=== PATIENT | female | born 1980 | race Caucasian/White ===

== ENCOUNTER 2018-08-07 19:38 | Emergency (ER) | payer OTHER, SELFPAY ==
[2018-08-07 19:40] VITALS: BP 124/95; PULSE 74; RESP 20; TEMP 36.7; O2SAT 97
--- NOTE | 2018-08-07 20:36 | ED.GENADUL_ITS ---
Discharge Plan Disposition Patient Disposition: HOME Condition: Stable Discharge Details Chief Complaint: Nk/Back Pain Clinical Impression: Lumbar back pain, Sciatica Primary Care Provider: Gregorio Pappas ED Provider: Kristyn Byrd Home Meds and New Rx's Prescriptions: New ibuprofen 600 mg tablet 600 mg PO QID PRN (Reason: pain) Qty: 20 RF: 0 methylprednisolone [Medrol (Jj)] 4 mg tablets,dose pack 4 mg PO DIRECTED Qty: 21 RF: 0 diazepam [Valium] 5 mg tablet 5 mg PO TID PRN (Reason: muscle spasm) Qty: 7 RF: 0 Continue multivitamin [One-A-Day Essential] 1 EACH tablet 1 cap PO DAILY RF: 0 conjugated estrogens [Premarin] 1.25 MG tablet 1.25 mg PO DAILY RF: 0 Discharge Instructions Instructions: Sciatica (ED), Low Back Strain (ED) Additional Instructions: Alternate ice and heat several times daily for 20 minutes at a time. Take the Valium as needed and directed for pain not relieved with ibuprofen. If you have no relief of pain in the next 2 days, start the steroid dosepak. Follow up with your primary care doctor in 1 week for reevaluation. Return to the emergency department any worsening or new concerning symptoms. Discharge Data Discharge Physician: Kristyn Byrd Medical Decision Making 37-year-old female presents with right lower back with radiation to right hip, right buttock and right anterior thigh since this afternoon. Denies known injury. Pain extends into anterior thigh but not past this. No cauda equina symptoms. No urinary symptoms. No fever, vomiting or abdominal pain. Patient has history of hysterectomy. Vitals within normal limits. Afebrile. No signs of trauma, infection or rash noted to back or leg. She has tenderness palpation to local palpation of right lumbar paraspinal region, right buttock. Positive straight leg raise on the right. Hypoactive reflex noted to right patella. Otherwise she is neurovascularly intact with normal strength in her bilateral lower extremities. She has history of sac and states her symptoms feel similar. Presentation appears similar to sciatica versus muscle spasm at this time. Patient took ibuprofen and minutes prior to arrival. 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 Will send home with dose of Valium for home tonight before sleep. Patient was also given a prescription for Valium to take over the next few days when she is home and not driving. She was also sent home with a prescription for Medrol Dosepak to take if she has no relief with Motrin and Valium, ice and heat as she does not want to feel sleepy and needs to drive. She is instructed to try the other medication to see if she has relief before starting the steroids. She is instructed to follow-up with a primary care doctor in 1 week for reevaluation and for possible MRI if symptoms persist or worsen. She is instructed to return here immediately if worse. HPI General Mode of arrival: ambulatory . Date/Time Provider Initiated Documentation: 08/07/18 19:44 . Limitations to Documentation: no limitations . Information obtained by: patient . HPI Narrative: Patient is a 37-year-old female who presents with right-sided lower back pain with extension into right hip, right buttock and right thigh since this afternoon. States she laid down for a nap and then awoke with the pain. Patient states the pain feels like a burning and aching and is currently 8/10. States the pain is worse with walking, moving or standing and better when laying on her right side. She took ibuprofen 90 minutes ago without relief. She has not used ice or heat. She admits to history of sciatica in the past and states this feels somewhat similar. She denies fever, nausea, vomiting, abdominal pain, dysuria, hematuria, urinary frequency, urinary urgency , urinary or fecal incontinence, saddle anesthesia, leg weakness or numbness. She denies any known injury. 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 Past medical history: Endometriosis, HPV Surgical history: Hysterectomy 2008, laparoscopy Social history: Former tobacco user, rare alcohol, denies drugs Medications: Multivitamin, Premarin Allergies: None PCP: Dr. Moreno in [place] Related Data Home Medications Medication Instructions Recorded Confirmed conjugated estrogens [Premarin] 1.25 mg PO DAILY 12/21/14 08/07/18 multivitamin [One-A-Day Essential] 1 cap PO DAILY 12/21/14 08/07/18 diazepam [Valium] 5 mg PO TID PRN #7 tab 08/07/18 ibuprofen 600 mg PO QID PRN #20 tab 08/07/18 methylprednisolone [Medrol (Jj)] 4 mg PO DIRECTED #21 dose pk 08/07/18 Previous Rx's Medication Instructions Recorded diazepam [Valium] 5 mg PO TID PRN #7 tab 08/07/18 ibuprofen 600 mg PO QID PRN #20 tab 08/07/18 methylprednisolone [Medrol (Jj)] 4 mg PO DIRECTED #21 dose pk 08/07/18 Allergies Allergy/AdvReac Type Severity Reaction Status Date / Time No Known Allergies Allergy Unverified 08/07/18 19:43 General Stated Complaint: Nk/Back Pain IRON: 3 Review of Systems Review of Systems All systems reviewed & are unremarkable except as noted in HPI and below Constitutional Reports as per HPI, Denies chills and Denies fever(s) Eyes Denies blurry vision ENT Denies dizziness, Denies sore throat and Denies throat swelling Cardiovascular Denies chest pain and Denies dyspnea Respiratory Denies dyspnea Gastrointestinal Denies abdominal pain, Denies diarrhea and Denies vomiting Genitourinary Denies hematuria and Denies dysuria Musculoskeletal Reports back pain and Denies numbness Integumentary/Breasts Denies lesions and Denies rash Neurologic Denies dizziness and Denies numbness Allergic/Immunologic Denies throat swelling PFSH Social History Smoking/Tobacco Use Status: Former Tobacco Use Exam Const General: cooperative, healthy appearing and no acute distress HENMT Head: normal to inspection Mouth: oral mucosae normal Eyes General: appearance normal, both eyes and all related structures Neck Neck: normal visual inspection Resp Effort & Inspection: normal respiratory effort and able to speak in complete sentences Auscultation: clear to auscultation bilaterally Cardio Rate: regular rate Rhythm: regular rhythm GI Inspection: normal to inspection Palpation: soft, not firm, no guarding, not rigid and nontender Back/Spine/Pelvis Back: no CVA tenderness Thoracic/Lumbar Spine: No straight leg raise negative bilaterally (positive on right), paraspinal tenderness (R lumbar region) and No lumbar spinal tenderness Sacroiliac joints: on the right tender to palpation Other: Tenderness to palpation R upper buttock. No evidence of ecchymosis, erythema, rash, lesions, induration or fluctuance noted to lumbar region or right buttock. Skin General skin exam: no rashes or lesions noted Neuro General: alert, awake and oriented x3 Motor: muscle tone normal throughout and strength 5/5 throughout DTR's: Rt Patellar: 1+, Lt Patellar: 2+, Rt Ankle: 2+ and Lt Ankle: 2+ Plantar Reflexes: Equivocal: bilateral (Negative babinski b/l ) Extrem General: normal to inspection and full ROM Other: Bilateral DP/PT pulses intact. Psych Appearance: grossly normal Affect: normal affect Course Vital Signs Temperature 98.1 F 08/07/18 19:40 Pulse 74 08/07/18 19:40 Respiratory Rate 20 08/07/18 19:40 Blood Pressure 124/95 H 08/07/18 19:40 Pulse Oximetry 97 08/07/18 19:40 Temperature 98.1 F 08/07/18 19:40 Temperature Source Temporal Artery Scan 08/07/18 19:40 Pulse 74 08/07/18 19:40 Respiratory Rate 20 08/07/18 19:40 Respiratory Effort Non-Labored 08/07/18 19:40 Blood Pressure 124/95 H 08/07/18 19:40 Pulse Oximetry 97 08/07/18 19:40 Oxygen Delivery Method Room Air 08/07/18 19:40 Oxygen Flow Rate 0 08/07/18 19:40 Pain Level 8 08/07/18 19:44
[2018-08-07] MEDS: Diazepam 5 MG TAB PO (20:40)
[2018-08-07 20:51] VITALS: BP 124/95; PULSE 74; RESP 20; TEMP 36.7; O2SAT 97
== END 2018-08-07 20:45 | disposition home or self-care (01) ==
LOC: ER 20:53
PROVIDERS: Emergency Provider Physician Assistant; PCP Family Medicine
DX: M54.41 Lumbago with sciatica, right side (principal)
CPT/HCPCS: 99283

== ENCOUNTER 2019-08-31 11:41 | Emergency (ER) | payer OTHER, SELFPAY ==
[2019-08-31 11:42] VITALS: BP 122/81; PULSE 85; RESP 14; TEMP 36.6; O2SAT 97
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
--- NOTE | 2019-08-31 12:04 | DI.RAD_ITS ---
EXAM: XR FINGER RT RING INDICATION: trauma, pain at right 4 digit at PIP joint. COMPARISON: RIGHT HAND COMPLETE from 04/19/2015 TECHNIQUE: 2D digital imaging was performed. FINDINGS: No fracture or dislocation is seen. There are no bony erosions or evidence of foreignbody. IMPRESSION: Negative right ring finger.
[2019-08-31] MEDS: Acetaminophen 325 MG TAB 650 MG PO (12:09)
== END 2019-08-31 13:13 | disposition home or self-care (01) ==
PROVIDERS: Emergency Provider Student in an Organized Health Care Education/Training Program; PCP Family Medicine
DX: M79.644 Pain in right finger(s) (principal)
CPT/HCPCS: 99283; 73140; 99282

== ENCOUNTER 2020-11-03 18:54 | Emergency (ER) | payer OTHER, SELFPAY ==
[2020-11-03 18:58] VITALS: BP 158/98; PULSE 104; RESP 20; TEMP 36.5; O2SAT 97
--- NOTE | 2020-11-03 19:03 | ED.GENADUL_ITS ---
Discharge Plan Disposition Patient Disposition: HOME Condition: Stable Discharge Details Clinical Impression: Urinary tract infection Primary Care Provider: Gregorio Pappas ED Provider: Myrtle Roberts Home Meds and New Rx's Prescriptions: New phenazopyridine [Pyridium] 100 mg tablet 100 mg PO TID PRN (Reason: pain) Qty: 7 RF: 0 cephalexin 500 mg capsule 500 mg PO BID 7 Days Qty: 14 RF: 0 No Action multivitamin [One-A-Day Essential] 1 EACH tablet 1 cap PO DAILY RF: 0 Premarin 1.25 MG tablet 1.25 mg PO DAILY RF: 0 Discharge Instructions Instructions: Urinary Tract Infection in Women (ED) Additional Instructions: Follow up with primary care provider in 3-5 days. Return to ED sooner if any worsening pain, fever, vomiting, or concerns. Increase oral fluids. Please take Tylenol or Ibuprofen with food every 4-6 hours as needed for pain and swelling. Take medications as directed. Continue taking antibiotic even when feeling better. The Pyridium will numb the urinary tract and turn your urine bright orange. Referrals: Gregorio Pappas [Primary Care Provider] - Medical Decision Making 40-year-old female presents to the ER with chief complaint of dysuria, urinary hesitancy, urinary frequency and hematuria. This began approximately 2 hours prior to arrival. No vomiting no flank pain no other complaints. Urinalysis shows large blood, moderate leukocytes, negative nitrite micro shows greater than 50 WBCs culture is pending at this time. Patient was given Pyridium in department and cephalexin 500 mg p.o. prior to discharge. Prescription given for cephalexin 500 mg twice a day x10 days. Discussed return instructions, verbalized understanding. HPI General Mode of arrival: ambulatory . Date/Time Provider Initiated Documentation: 11/03/20 18:54 . Limitations to Documentation: no limitations . Information obtained by: patient . HPI Narrative: 40-year-old female presents to the ER chief complaint of dysuria and hematuria which began approximately 2 hours prior to arrival. She describes hesitancy and bladder fullness. Denies any back pain, abdominal pain, fever chills or diarrhea. She has a past surgical history of hysterectomy past medical history of endometriosis and HPV. Related Data Home Medications Medication Instructions Recorded Confirmed Premarin 1.25 mg PO DAILY 12/21/14 11/03/20 multivitamin [One-A-Day Essential] 1 cap PO DAILY 12/21/14 11/03/20 cephalexin 500 mg PO BID 7 Days #14 cap 11/03/20 phenazopyridine [Pyridium] 100 mg PO TID PRN #7 tab 11/03/20 Previous Rx's Medication Instructions Recorded cephalexin 500 mg PO BID 7 Days #14 cap 11/03/20 phenazopyridine [Pyridium] 100 mg PO TID PRN #7 tab 11/03/20 Allergies Allergy/AdvReac Type Severity Reaction Status Date / Time No Known Allergies Allergy Unverified 11/03/20 19:02 General Stated Complaint: Urinary IRON: 3 Review of Systems All systems reviewed & are unremarkable except as noted in HPI and below Genitourinary Genitourinary: Reports as per HPI, Reports hematuria, Reports dysuria and Reports urinary hesitancy [facility] Social History Smoking/Tobacco Use Status: Former Tobacco Use Smoking risk assessment performed?: Yes Alcohol Intake: never Drug use: Never Substance use type: does not use Current gender identity: female Do you feel safe at home: Yes Do you feel safe in your relationship?: Yes Exam Narrative Exam Narrative: Constitutional: Alert and oriented x3. Appears stated age. Normal body habitus. Head: Normocephalic, no trauma. Chest: RRR, Normal S1, S2, distal pulses intact. Resp: Lungs clear to auscultation bilaterally, no wheezes, rales, or rhonchi. Abdomen: Soft, nontender to palpation, nondistended Musculoskeletal: Normal gait, 5/5 strength to all four extremities. Skin: No suspicious rashes or lesions. Capillary refill less than 2 sec. Neurologic: Cranial nerves II-XII intact. Alert and oriented x 3. DTR's intact. Hematologic/Lymphatic: No ecchymosis, no lymphadenopathy. Course Vital Signs Vital signs: Vital Signs Temperature 36.5 C 11/03/20 18:58 Pulse 104 H 11/03/20 18:58 Respiratory Rate 20 11/03/20 18:58 Blood Pressure 158/98 H 11/03/20 18:58 Pulse Oximetry 97 11/03/20 18:58 Temperature 36.5 C 11/03/20 18:58 Temperature Source Skin 11/03/20 18:58 Pulse 104 H 11/03/20 18:58 Respiratory Rate 20 11/03/20 18:58 Respiratory Effort Non-Labored 11/03/20 19:02 Blood Pressure 158/98 H 11/03/20 18:58 Blood Pressure Position Sitting 11/03/20 18:58 Pulse Oximetry 97 11/03/20 18:58 Oxygen Delivery Method Room Air 11/03/20 18:58 Oxygen Flow Rate 0 11/03/20 18:58 Pain Level 9 11/03/20 18:58
[2020-11-03 19:22] LABS: Bilirubin Negative (Negative); Blood Large (Negative); Clarity Sl Cloudy (Clear); Glucose Negative (Negative); Ketones Negative (Negative); Leukocyte Esterase Moderate (Negative); Nitrite Negative (Negative); Urobilinogen 0.2 EU/dL (Up TO 0.2)
[2020-11-03 19:32] LABS: WBC >50 HPF (0-5)
[2020-11-03 19:33] LABS: Bacteria Moderate HPF (Negative); C & S Indicated? Yes; Casts Negative LPF (Negative); Crystals Negative HPF (Negative); Epithelial Cells Few HPF (Negative); Mucus Negative (Negative); Other Cells Negative (Negative); RBC Negative HPF (0-2)
[2020-11-03] MEDS: Cephalexin 500 MG CAP PO (19:39)
[2020-11-03] MEDS: Phenazopyridine 100 MG TAB PO (19:39)
[2020-11-03] MEDS: Cephalexin 500 MG CAP, 4 CAPS/BTL PO (19:39)
[2020-11-03] MEDS: Phenazopyridine 100 MG TAB, 2 TABS/BTL PO (19:40)
== END 2020-11-03 19:42 | disposition home or self-care (01) ==
PROVIDERS: Emergency Provider Registered Nurse Emergency; PCP Family Medicine
DX: N39.0 Urinary tract infection, site not specified (principal); B96.20 Unspecified Escherichia coli [E. coli] as the cause of diseases classified elsewhere
CPT/HCPCS: 81025; 87077; 99283; 81003; 81015; 87086; 87186

== ENCOUNTER 2021-08-05 11:01 | Emergency (ER) | payer OTHER, SELFPAY ==
[2021-08-05 11:06] VITALS: BP 135/84; PULSE 88; RESP 14; TEMP 36.8; O2SAT 98
--- NOTE | 2021-08-05 11:27 | W.ED.GENAD ---
Discharge Plan Disposition Patient Disposition: HOME Condition: Stable Discharge Details Clinical Impression: UTI (urinary tract infection) Primary Care Provider: Gregorio Pappas ED Provider: Shira Jiang Home Meds and New Rx's Prescriptions: New cephalexin 500 mg tablet 500 mg PO BID 7 Days Qty: 14 RF: 0 phenazopyridine [Pyridium] 100 mg tablet 100 mg PO TID PRN (Reason: pain) Qty: 6 RF: 0 Continued multivitamin [One-A-Day Essential] 1 EACH tablet 1 cap PO DAILY RF: 0 Premarin 1.25 MG tablet 1.25 mg PO DAILY RF: 0 phenazopyridine [Pyridium] 100 mg tablet 100 mg PO TID PRN (Reason: pain) Qty: 7 RF: 0 Discharge Instructions Instructions: Urinary Tract Infection in Women (ED) Additional Instructions: Please continue to encourage hydration. Please take antibiotics for urinary tract infection as prescribed. Even if symptoms improve, please take the entire course. You may use the Pyridium as prescribed to help with the discomfort. You may use Tylenol and ibuprofen as needed for discomfort as well. If you develop fever/chills back pain or other new/worsening symptoms please seek care urgently once again. Otherwise complete follow-up with primary care in 1 week for reevaluation. Referrals: Gregorio Pappas [Primary Care Provider] - Medical Decision Making Patient is a pleasant 40-year-old female presenting today with chief complaint of dysuria, increased frequency and urgency. She states that she had similar episodes historically and seen here in October for same. At that time, she did have a UTI which was pansensitive states that starting yesterday, she began having increased frequency urgency dysuria once again. No hematuria. Denies any flank pain. Denies any fevers or chills. No nausea or vomiting. Denies any vaginal discharge. Patient is status post hysterectomy. On exam, patient appears nontoxic. No CVA tenderness. No significant abdominal discomfort. Patient is nontoxic-appearing with stable vital signs. We will obtain urinalysis. Primarily concern for UTI. No evidence to suggest septicemia or pyelonephritis this time. Patient was treated Pyridium and cephalexin when she was here in October with good results. We will do the same once again. Encourage hydration. We discussed ways to prevent UTIs in the future. Return precautions were discussed. All of her questions and concerns were addressed and she is in agreement this plan. HPI General Mode of arrival: ambulatory. Date/Time Provider Initiated Documentation: 08/05/21 11:27. Limitations to Documentation: no limitations. Information obtained by: patient, RN notes reviewed and old records reviewed. History of Present Illness 40 year old F presents to the emergency department with the chief complaint of Dysuria, increased frequency and urgency, described as moderate and similar to prior episodes, with intensity rated at 7. Quality is described as burning, and is localized to the genitals (At urethra with urination). Patient reports no radiation. Patient started experiencing this day(s) and it has been constant. Medication improves symptom(s), (Has used 1 dose of Azo today with good relief) No exacerbating factors reported . Patient notes no other symptoms.. Patient did receive the following treatments prior to arrival, other (Azo) Related Data Home Medications Medication Instructions Recorded Confirmed Premarin 1.25 mg PO DAILY 12/21/14 08/05/21 multivitamin [One-A-Day Essential] 1 cap PO DAILY 12/21/14 08/05/21 phenazopyridine [Pyridium] 100 mg PO TID PRN #7 tab 11/03/20 08/05/21 cephalexin 500 mg PO BID 7 Days #14 tab 08/05/21 phenazopyridine [Pyridium] 100 mg PO TID PRN #6 tab 08/05/21 Previous Rx's Medication Instructions Recorded phenazopyridine [Pyridium] 100 mg PO TID PRN #7 tab 11/03/20 cephalexin 500 mg PO BID 7 Days #14 tab 08/05/21 phenazopyridine [Pyridium] 100 mg PO TID PRN #6 tab 08/05/21 Allergies Allergy/AdvReac Type Severity Reaction Status Date / Time No Known Allergies Allergy Unverified 11/28/20 11:40 General Stated Complaint: Urinary IRON: 3 Review of Systems Constitutional Constitutional: Reports as per HPI, Denies chills and Denies fever(s) Gastrointestinal Gastrointestinal: Denies abdominal pain, Denies change in bowel habits, Denies nausea and Denies vomiting Genitourinary Genitourinary: Reports as per HPI Musculoskeletal Musculoskeletal: Reports as per HPI and Denies back pain Integumentary/Breasts Skin/Breast: Reports as per HPI and Denies rash [facility] Social History Smoking/Tobacco Use Status: Former Tobacco Use Smoking risk assessment performed?: Yes Alcohol Intake: never Drug use: Never Substance use type: does not use Current gender identity: female Do you feel safe at home: Yes Do you feel safe in your relationship?: Yes Exam Const General: cooperative, healthy appearing, comfortable, no acute distress, well developed and well groomed Nutritional Appearance: average body habitus and well nourished Orientation: alert and awake Resp Effort & Inspection: normal respiratory effort and no respiratory distress Auscultation: no rales GI Inspection: normal to inspection Palpation: soft, no hepatosplenomegaly, not firm, no guarding, not rigid and nontender Back/Spine/Pelvis Back: no CVA tenderness Skin General skin exam: no rashes or lesions noted Trauma: no lacerations or abrasions Neuro General: patient alert and patient awake Cognition: normal cognition Speech: speech normal Gait: normal gait Psych Appearance: grossly normal and well kempt Mental Status: mental status grossly normal Speech and Movement: speech and movement normal Course Vital Signs Vital signs: Vital Signs Temperature 36.8 C 08/05/21 11:06 Pulse 88 08/05/21 11:06 Respiratory Rate 14 08/05/21 11:06 Blood Pressure 135/84 08/05/21 11:06 Pulse Oximetry 98 08/05/21 11:06 Temperature 36.8 C 08/05/21 11:06 Temperature Source Tympanic 08/05/21 11:06 Pulse 88 08/05/21 11:06 Respiratory Rate 14 08/05/21 11:06 Respiratory Effort Non-Labored 08/05/21 11:09 Blood Pressure 135/84 08/05/21 11:06 Blood Pressure Position Sitting 08/05/21 11:06 Pulse Oximetry 98 08/05/21 11:06 Pain Level 6 08/05/21 11:18
[2021-08-05 11:29] LABS: Bilirubin Negative (Negative); Blood Negative (Negative); Clarity Clear (Clear); Glucose Negative (Negative); Ketones Negative (Negative); Leukocyte Esterase Small (Negative); Nitrite Positive (Negative); Urobilinogen 0.2 EU/dL (Up TO 0.2)
[2021-08-05 11:37] LABS: Bacteria Few HPF (Negative); C & S Indicated? Yes; Casts Negative LPF (Negative); Crystals Negative HPF (Negative); Epithelial Cells Few HPF (Negative); Mucus Negative (Negative); RBC Negative HPF (0-2)
[2021-08-05 11:48] VITALS: BP 128/80; PULSE 80; RESP 16; TEMP 36.8; O2SAT 98
== END 2021-08-05 11:44 | disposition home or self-care (01) ==
PROVIDERS: Emergency Provider Physician Assistant; PCP Family Medicine
DX: N39.0 Urinary tract infection, site not specified (principal); B96.89 Other specified bacterial agents as the cause of diseases classified elsewhere
CPT/HCPCS: 99283; 81003; 81015; 87086

== ENCOUNTER 2021-08-22 09:55 | Outpatient (REF) | payer OTHER, SELFPAY ==
[2021-08-22 15:20] LABS: Bilirubin Negative (Negative); Blood Trace (Negative); Clarity Clear (Clear); Glucose Negative (Negative); Ketones Negative (Negative); Leukocyte Esterase Small (Negative); Nitrite Negative (Negative); Urobilinogen 0.2 EU/dL (Up TO 0.2); pH 6.5 (5-8)
[2021-08-22 15:30] LABS: Bacteria Rare HPF (Negative); C & S Indicated? No/Sq. Contamination; Casts Negative LPF (Negative); Crystals Negative HPF (Negative); Epithelial Cells Moderate HPF (Negative); Mucus Negative (Negative); Other Cells Few Transitional (Negative); RBC 0-2 HPF (0-2)
== END 2021-08-22 09:56 | disposition home or self-care (01) ==
LOC: LBN 09:55
PROVIDERS: PCP Family Medicine; Visit Provider Obstetrics & Gynecology Gynecology
DX: R30.0 Dysuria (principal); Z12.4 Encounter for screening for malignant neoplasm of cervix; Z53.9 Procedure and treatment not carried out, unspecified reason
CPT/HCPCS: 88142; 81003; 81015; 87624

== ENCOUNTER 2021-08-22 12:45 | Emergency (ER) | payer OTHER, SELFPAY ==
[2021-08-22 12:49] VITALS: BP 140/78; PULSE 81; RESP 16; TEMP 36.3; O2SAT 97
[2021-08-22 13:06] LABS: Bilirubin Negative (Negative); Clarity Clear (Clear); Glucose Negative (Negative); Ketones Negative (Negative); Leukocyte Esterase Small (Negative); Nitrite Positive (Negative); Urobilinogen 0.2 EU/dL (Up TO 0.2)
[2021-08-22 13:07] LABS: Blood Trace-intact (Negative)
[2021-08-22 13:12] LABS: Bacteria Few HPF (Negative); C & S Indicated? No/Sq. Contamination; Casts Negative LPF (Negative); Crystals Negative HPF (Negative); Epithelial Cells Many HPF (Negative); Mucus Negative (Negative)
--- NOTE | 2021-08-22 13:19 | ED.GENADUL_ITS ---
Discharge Plan Disposition Patient Disposition: HOME Condition: Stable Discharge Details Clinical Impression: UTI (urinary tract infection) Primary Care Provider: Gregorio Pappas ED Provider: Bassam Andrade Home Meds and New Rx's Prescriptions: New sulfamethoxazole-trimethoprim [Bactrim DS] 800-160 mg tablet 1 tab PO BID Qty: 14 RF: 0 phenazopyridine [Pyridium] 200 mg tablet 200 mg PO TID PRNQty: 6 RF: 0 Continued multivitamin [One-A-Day Essential] 1 EACH tablet 1 cap PO DAILY RF: 0 Premarin 1.25 MG tablet 1.25 mg PO DAILY RF: 0 Discontinued phenazopyridine [Pyridium] 100 mg tablet 100 mg PO TID PRN (Reason: pain) Qty: 7 RF: 0 Discharge Instructions Instructions: Urinary Tract Infection in Women (ED) Additional Instructions: As we discussed your urine sample was contaminated, inconclusive for obvious infection. Based upon your symptoms, you would like to be treated which I believe is reasonable. Pyridium and Bactrim as directed. Please watch for new or worsening symptoms and return to the ER for any concerns. If symptoms are to persist I do recommend following up with your primary care provider for potential repeat urinalysis, pelvic exam, and/or referral to urology for more definitive answers of your ongoing symptoms. Medical Decision Making 40-year-old female presents concern for UTI over the past couple of days. Patient most recent antibiotics, reviewing her medical record reveals that she was placed on cephalexin. Patient denies any STD exposure. She denies any fever abdominal pain, nausea, vomiting, flank pain, back pain, vaginal discharge or bleeding. Clinically she appears well, nontoxic obtain urinalysis and reassess. POC negative. Urinalysis trace blood, positive nitrite, 5-10 red cells, 10-20 white cells, many epithelials. Few bacteria. Likely contamination. Discussed UA with patient. Patient feels as though this is exactly like her previous UTI, would like to be treated as such. She would prefer not to have another urinalysis for now. Clinically she appears well, nontoxic, abdominal discomfort, nausea, vomiting or fever, back pain, vaginal bleeding or discharge. Discussed we will treat for UTI now with a medication other than cephalexin and will provide Pyridium but if symptoms are to persist I strongly recommend that she follows up through her primary care provider to discuss her ongoing symptoms, potential urology referral, and potential pelvic examination for further evaluation of her ongoing symptoms. Standard discharge and return precautions provided This documentation was generated using [employer] dictation system, please disregard any oddities of phrase or misspellings. Medical Records Medical records reviewed: Yes I reviewed the patient's medical records. Lab Data Lab results reviewed: Yes I reviewed the patient's lab results. Labs: Laboratory Tests Range/Units 08/22/21 12:50 Urine Color (Yellow) Yellow Urine Clarity (Clear) Clear Urine pH (5-8) 6.0 Ur Specific [place] (1.005-1.025) 1.010 Urine Protein (Negative) mg/dL Negative Urine Ketones (Negative) mg/dL Negative Urine Blood (Negative) Trace-intact H Urine Nitrite (Negative) Positive H Urine Bilirubin (Negative) Negative Urine Urobilinogen (Up TO 0.2) EU/dL 0.2 Ur Leukocyte Esterase (Negative) Small Urine RBC (0-2) HPF 5-10 H Urine WBC (0-5) HPF 10-20 H Ur Epithelial Cells (Negative) HPF Many Urine Crystals (Negative) HPF Negative Urine Bacteria (Negative) HPF Few Urine Casts (Negative) LPF Negative Urine Mucus (Negative) Negative Ur Culture Indicated? No/Sq. Contamination Urine Glucose (Negative) mg/dL Negative HPI General Mode of arrival: ambulatory . Date/Time Provider Initiated Documentation: 08/22/21 13:01 . Limitations to Documentation: no limitations . Information obtained by: patient . HPI Narrative: This is a 40-year-old female, denies any significant past medical history, presenting to the ER for concern of a possible UTI. Patient reports dysuria and urinary frequency over the past couple of days. Similar symptoms 1 month ago, treated with antibiotics and Pyridium and symptoms improved. Denies any fevers abdominal pain, nausea, vomiting, back pain, vaginal bleeding or discharge. No STD exposure. Patient did take a single AZO that she had leftover from her previous UTI. Related Data Home Medications Medication Instructions Recorded Confirmed Premarin 1.25 mg PO DAILY 12/21/14 08/22/21 multivitamin [One-A-Day Essential] 1 cap PO DAILY 12/21/14 08/22/21 phenazopyridine [Pyridium] 200 mg PO TID PRN #6 tab 08/22/21 sulfamethoxazole-trimethoprim 1 tab PO BID #14 tab 08/22/21 [Bactrim DS] Previous Rx's Medication Instructions Recorded phenazopyridine [Pyridium] 200 mg PO TID PRN #6 tab 08/22/21 sulfamethoxazole-trimethoprim 1 tab PO BID #14 tab 08/22/21 [Bactrim DS] Allergies Allergy/AdvReac Type Severity Reaction Status Date / Time No Known Allergies Allergy Unverified 08/22/21 12:59 General Stated Complaint: Urinary IRON: 4 Review of Systems Constitutional Constitutional: Denies fever(s) Gastrointestinal Gastrointestinal: Denies abdominal pain, Denies nausea and Denies vomiting Genitourinary Genitourinary: Denies abnormal vaginal bleeding, Reports hematuria, Reports dysuria and Denies vaginal discharge Musculoskeletal Musculoskeletal: Denies back pain Integumentary/Breasts Skin/Breast: Denies rash [facility] Social History Smoking/Tobacco Use Status: Former Tobacco Use Smoking risk assessment performed?: Yes Alcohol Intake: never Drug use: Never Substance use type: does not use Current gender identity: female Do you feel safe at home: Yes Do you feel safe in your relationship?: Yes Exam Const General: cooperative, healthy appearing, comfortable and no acute distress Orientation: alert and awake HENMT Head: normal to inspection, normocephalic and atraumatic Eyes General: appearance normal, both eyes and all related structures Conjunctivae: conjunctivae normal Neck Neck: normal visual inspection, trachea midline and supple Resp Effort & Inspection: normal respiratory effort and able to speak in complete sentences Cardio Rate: regular rate Rhythm: regular rhythm GI Palpation: soft, not firm, no guarding and nontender Back/Spine/Pelvis Back: No back tenderness Skin General skin exam: no rashes or lesions noted Neuro General: patient alert, patient awake, moves all extremities and no focal motor deficits Speech: speech normal Gait: normal gait Sensory Exam: no sensory deficits noted Psych Appearance: grossly normal Mental Status: mental status grossly normal Course Vital Signs Vital signs: Vital Signs Temperature 36.3 C L 08/22/21 12:49 Pulse 81 08/22/21 12:49 Respiratory Rate 16 08/22/21 12:49 Pulse Oximetry 97 08/22/21 12:49 Temperature 36.3 C L 08/22/21 12:49 Temperature Source Skin 08/22/21 12:49 Pulse 81 08/22/21 12:49 Respiratory Rate 16 08/22/21 12:49 Respiratory Effort Non-Labored 08/22/21 12:49 Pulse Oximetry 97 08/22/21 12:49 Pain Level 5 08/22/21 13:01 Lab/Test Results Lab/Test Results: Laboratory Tests Range/Units 08/22/21 12:50 Urine Color (Yellow) Yellow Urine Clarity (Clear) Clear Urine pH (5-8) 6.0 Ur Specific [place] (1.005-1.025) 1.010 Urine Protein (Negative) mg/dL Negative Urine Ketones (Negative) mg/dL Negative Urine Blood (Negative) Trace-intact H Urine Nitrite (Negative) Positive H Urine Bilirubin (Negative) Negative Urine Urobilinogen (Up TO 0.2) EU/dL 0.2 Ur Leukocyte Esterase (Negative) Small Urine RBC (0-2) HPF 5-10 H Urine WBC (0-5) HPF 10-20 H Ur Epithelial Cells (Negative) HPF Many Urine Crystals (Negative) HPF Negative Urine Bacteria (Negative) HPF Few Urine Casts (Negative) LPF Negative Urine Mucus (Negative) Negative Ur Culture Indicated? No/Sq. Contamination Urine Glucose (Negative) mg/dL Negative
== END 2021-08-22 13:37 | disposition home or self-care (01) ==
PROVIDERS: Emergency Provider Physician Assistant; PCP Family Medicine
DX: N39.0 Urinary tract infection, site not specified (principal)
CPT/HCPCS: 81025; 99283; 81003; 81015

== ENCOUNTER 2021-10-22 22:09 | Emergency (ER) | payer OTHER, SELFPAY ==
[2021-10-22 22:16] VITALS: BP 125/83; PULSE 88; RESP 16; TEMP 36.6; O2SAT 96
--- NOTE | 2021-10-22 22:16 | ED.GENADUL_ITS ---
Discharge Plan Disposition Patient Disposition: HOME Condition: Stable Discharge Details Clinical Impression: UTI (urinary tract infection) Primary Care Provider: Gregorio Pappas ED Provider: Tammie Milton Home Meds and New Rx's Prescriptions: New cephalexin 500 mg capsule 500 mg PO BID Qty: 8 RF: 0 No Action multivitamin [One-A-Day Essential] 1 EACH tablet 1 cap PO DAILY RF: 0 Premarin 1.25 MG tablet 1.25 mg PO DAILY RF: 0 terbinafine HCl 250 mg tablet 250 mg PO DAILY RF: 0 Discharge Instructions Instructions: Urinary Tract Infection in Women (ED) Additional Instructions: push fluids to stay well hydrated Referrals: Gregorio Pappas [Primary Care Provider] - Discharge Data Discharge Date/Time-TO BE ENTERED AT DEPARTURE: 10/22/21 22:35 Medical Decision Making patient symtpoms consistent with UTI, no signs of upper urinary infection with no flank pain, fever, nausea. able to tolerate PO well. based on previous culture of pansensitive UTI will treat with keflex. will culture unacceptable contaminated urine specimen. Medical Records Medical records reviewed: Yes I reviewed the patient's medical records. Lab Data Lab results reviewed: Yes I reviewed the patient's lab results. Lab results narrative: Lab Results 10/22/21 Range/Units 22:21 Urine Color Cancelled Urine Clarity Cancelled Urine pH Cancelled Ur Specific [place] Cancelled Urine Protein Cancelled Urine Ketones Cancelled Urine Blood Cancelled Urine Nitrite Cancelled Urine Bilirubin Cancelled Urine Urobilinogen Cancelled Ur Leukocyte Esterase Cancelled Urine RBC 5-10 H (0-2) HPF Urine WBC >50 H (0-5) HPF Ur Epithelial Cells Moderate (Negative) HPF Urine Crystals Negative (Negative) HPF Urine Bacteria Few (Negative) HPF Urine Casts Negative (Negative) LPF Urine Mucus Negative (Negative) Ur Culture Indicated? No/Sq. Contamination Urine Glucose Cancelled HPI General Mode of arrival: ambulatory . Limitations to Documentation: no limitations . Information obtained by: patient . HPI Narrative: presents with frequency urg ency and symptoms consistent with previous history of UTI. no flank pain or fever, no nausea, taking good PO. Related Data Home Medications Medication Instructions Recorded Confirmed Premarin 1.25 mg PO DAILY 12/21/14 10/22/21 multivitamin [One-A-Day Essential] 1 cap PO DAILY 12/21/14 10/22/21 cephalexin 500 mg PO BID #8 cap 10/22/21 terbinafine HCl 250 mg PO DAILY 10/22/21 10/22/21 Previous Rx's Medication Instructions Recorded cephalexin 500 mg PO BID #8 cap 10/22/21 Allergies Allergy/AdvReac Type Severity Reaction Status Date / Time No Known Allergies Allergy Unverified 10/22/21 22:19 General IRON: 4 Review of Systems All systems reviewed & are unremarkable except as noted in HPI and below Constitutional Constitutional: Denies fever(s) Gastrointestinal Gastrointestinal: Denies diarrhea, Denies nausea and Denies vomiting Genitourinary Genitourinary: Reports dysuria, Denies pelvic pain, Reports urinary urgency (and frequency), Denies vaginal discharge and Reports other (denies flank pain) Musculoskeletal Musculoskeletal: Denies back pain PFSH All Active Problems (Updated 10/22/21 @ 22:17 by Tammie Milton NP) UTI (urinary tract infection) (Acute) Social History Smoking/Tobacco Use Status: Former Tobacco Use Smoking risk assessment performed?: Yes Alcohol Intake: never Drug use: Never Substance use type: does not use Current gender identity: female Do you feel safe at home: Yes Do you feel safe in your relationship?: Yes Exam Const General: cooperative, healthy appearing, comfortable and no acute distress Nutritional Appearance: average body habitus and well nourished Orientation: alert, awake and oriented x3 HENMT Head: normal to inspection Mouth: oral mucosae normal Chest Chest: normal inspection of the chest Resp Effort & Inspection: normal respiratory effort (respirations are even and unlabored) Cardio Rate: regular rate Rhythm: regular rhythm GI Inspection: normal to inspection Palpation: soft and nontender General: other (urine visualized and consistent with recent pyridium use, bright orange) Back/Spine/Pelvis Back: no CVA tenderness Skin General skin exam: no rashes or lesions noted
[2021-10-22] MEDS: Phenazopyridine 100 MG TAB, 2 TABS/BTL PO (22:33)
[2021-10-22] MEDS: Cephalexin 500 MG CAP, 2 CAPS/BTL PO (22:34)
[2021-10-22 22:41] LABS: Bacteria Few HPF (Negative); C & S Indicated? No/Sq. Contamination; Casts Negative LPF (Negative); Crystals Negative HPF (Negative); Epithelial Cells Moderate HPF (Negative); Mucus Negative (Negative)
[2021-10-22 22:42] LABS: WBC >50 HPF (0-5)
== END 2021-10-22 22:35 | disposition home or self-care (01) ==
PROVIDERS: Emergency Provider Nurse Practitioner Acute Care; PCP Family Medicine
DX: N39.0 Urinary tract infection, site not specified (principal)
CPT/HCPCS: 99283; 81003; 81015; 87086

== ENCOUNTER 2022-01-07 09:21 | Emergency (ER) | payer OTHER, SELFPAY ==
[2022-01-07 09:26] VITALS: BP 130/92; PULSE 78; RESP 16; TEMP 36.6; O2SAT 99
[2022-01-07 09:41] LABS: Bilirubin Negative (Negative); Blood Moderate (Negative); Clarity Clear (Clear); Glucose Negative (Negative); Ketones Negative (Negative); Leukocyte Esterase Moderate (Negative); Nitrite Negative (Negative); Urobilinogen 0.2 EU/dL (Up TO 0.2); pH 6.5 (5-8)
[2022-01-07 09:53] LABS: Bacteria Few HPF (Negative); C & S Indicated? Yes; Casts Negative LPF (Negative); Crystals Negative HPF (Negative); Epithelial Cells Rare HPF (Negative); Mucus Negative (Negative)
--- NOTE | 2022-01-07 09:54 | ED.GENADUL_ITS ---
Discharge Plan Disposition Patient Disposition: HOME Condition: Stable Discharge Details Clinical Impression: UTI (urinary tract infection) Primary Care Provider: Gregorio Pappas ED Provider: Rahul Vega Home Meds and New Rx's Prescriptions: New cephalexin 500 mg capsule 500 mg PO TID 7 Days Qty: 21 0RF phenazopyridine [Pyridium] 200 mg tablet 200 mg PO TID PRNQty: 4 0RF Continued citalopram 20 mg tablet 20 mg PO DAILY 0RF multivitamin [One-A-Day Essential] 1 EACH tablet 1 cap PO DAILY 0RF Premarin 1.25 MG tablet 1.25 mg PO DAILY 0RF terbinafine HCl 250 mg tablet 250 mg PO DAILY 0RF Label Comments: TAKE ONE TABLET BY MOUTH ONCE A DAY d-mannose 500 mg Capsule 1,000 mg PO DAILY 0RF Discharge Instructions Instructions: Urinary Tract Infection in Women (ED) Additional Instructions: If you have any new or significant worsening symptoms such as fever chills, severe abdominal pain, nausea vomiting or inability to tolerate your antibiotics please return immediately to the emergency department for reassessment. If you have not improved in the next week please follow-up with your primary care provider for reassessment and further treatment as needed. Referrals: Gregorio Pappas [Primary Care Provider] - Discharge Data Discharge Date/Time-TO BE ENTERED AT DEPARTURE: 01/07/22 10:07 Medical Decision Making Patient presenting to the emergency department for chief complaint of dysuria along with urinary frequency. Patient states significant history of UTIs and that this is her fourth 1 in the last year. Symptoms are similar as before. Patient does have history of pyelonephritis but states that symptoms are not consistent with previous kidney infection. Physical exam is unremarkable for any systemic illness or symptoms of pyelonephritis. Vital signs stable. Urinalysis reviewed and does show findings consistent with UTI. Patient placed upon Keflex and Pyridium and encouraged follow-up with primary care provider if not improving. Patient informed that we are pending urinary culture will contact her if medication changes needed but review of last urine culture shows deng sensitivity. After discussion of diagnosis and plan of care patient has no further needs, questions, or concerns and states clear understanding to return to the emergency department for any worsening symptoms. HPI General Mode of arrival: ambulatory . Date/Time Provider Initiated Documentation: 01/07/22 09:30 . Limitations to Documentation: no limitations . Information obtained by: patient and old records reviewed . History of Present Illness 41 year old F presents to the emergency department with the chief complaint of Painful urination with urgency, described as moderate and similar to prior episodes, with intensity rated at 4. Quality is described as burning, and is localized to the genitals. Patient reports no radiation. Patient started experiencing this hour(s) (12) and it has been constant. improves with No relieving factors improve symptom(s), No exacerbating factors reported . Patient notes no other symptoms.. Patient did receive the following treatments prior to arrival, other (Pyridium) Related Data Home Medications Medication Instructions Recorded Confirmed conjugated estrogens 1.25 mg 1.25 mg PO DAILY 12/21/14 01/07/22 tablet (Premarin) multivitamin (One-A-Day Essential) 1 cap PO DAILY 12/21/14 01/07/22 terbinafine HCl 250 mg tablet 250 mg PO DAILY 10/22/21 01/07/22 citalopram 20 mg tablet 20 mg PO DAILY 11/23/21 cephalexin 500 mg capsule 500 mg PO TID 7 Days #21 cap 01/07/22 d-mannose 500 mg capsule 1,000 mg PO DAILY 01/07/22 01/07/22 phenazopyridine 200 mg tablet 200 mg PO TID PRN #4 tab 01/07/22 (Pyridium) Previous Rx's Medication Instructions Recorded cephalexin 500 mg capsule 500 mg PO TID 7 Days #21 cap 01/07/22 phenazopyridine 200 mg tablet 200 mg PO TID PRN #4 tab 01/07/22 (Pyridium) Allergies Allergy/AdvReac Type Severity Reaction Status Date / Time No Known Allergies Allergy Unverified 01/07/22 09:29 General Stated Complaint: Urinary IRON: 4 Review of Systems Constitutional Constitutional: Denies body ache(s), Denies chills, Denies fever(s), Denies malaise and Denies weakness Cardiovascular Cardiovascular: Denies chest pain Respiratory Respiratory: Reports system reviewed and no additional complaints, except as documented Gastrointestinal Gastrointestinal: Denies abdominal pain, Denies nausea and Denies vomiting Genitourinary Genitourinary: Reports as per HPI, Denies hematuria, Reports dysuria and Reports urinary urgency Neurologic Neurologic: Denies confusion and Denies weakness Psychiatric Psychiatric: Denies confusion PFSH All Active Problems UTI (urinary tract infection) (Acute) Family history of colon cancer (Acute) Medical History UTI (urinary tract infection) Social History Smoking/Tobacco Use Status: Former Tobacco Use Smoking risk assessment performed?: Yes Alcohol Intake: never Drug use: Never Substance use type: does not use Current gender identity: female Do you feel safe at home: Yes Do you feel safe in your relationship?: Yes Exam Const General: cooperative and no acute distress Orientation: alert, awake and oriented x3 Resp Effort & Inspection: normal respiratory effort and able to speak in complete sentences Auscultation: clear to auscultation bilaterally Cardio Rate: regular rate Rhythm: regular rhythm Heart Sounds: S1 normal and S2 normal Back/Spine/Pelvis Back: no CVA tenderness Neuro General: patient alert, patient awake and patient oriented x3 Course Vital Signs Vital signs: Vital Signs Temperature 36.6 C 01/07/22 09:26 Pulse 78 01/07/22 09:26 Respiratory Rate 16 01/07/22 09:26 Blood Pressure 130/92 H 01/07/22 09:26 Pulse Oximetry 99 01/07/22 09:26 Temperature 36.6 C 01/07/22 09:26 Temperature Source Temporal Artery Scan 01/07/22 09:26 Pulse 78 01/07/22 09:26 Respiratory Rate 16 01/07/22 09:26 Respiratory Effort Non-Labored 01/07/22 09:30 Blood Pressure 130/92 H 01/07/22 09:26 Blood Pressure Position Sitting 01/07/22 09:26 Pulse Oximetry 99 01/07/22 09:26 Oxygen Delivery Method Room Air 01/07/22 09:26 Oxygen Flow Rate 0 01/07/22 09:26 Pain Level 4 01/07/22 09:30 Lab/Test Results Lab/Test Results: 01/07/22 09:35 Urine - Reflex from Ua Urine Culture - Pending Laboratory Tests Range/Units 01/07/22 09:35 Urine Color (Yellow) Yellow Urine Clarity (Clear) Clear Urine pH (5-8) 6.5 Ur Specific [place] (1.005-1.025) 1.010 Urine Protein (Negative) mg/dL Negative Urine Ketones (Negative) mg/dL Negative Urine Blood (Negative) Moderate H Urine Nitrite (Negative) Negative Urine Bilirubin (Negative) Negative Urine Urobilinogen (Up TO 0.2) EU/dL 0.2 Ur Leukocyte Esterase (Negative) Moderate H Urine RBC (0-2) HPF 5-10 H Urine WBC (0-5) HPF 10-20 H Ur Epithelial Cells (Negative) HPF Rare Urine Crystals (Negative) HPF Negative Urine Bacteria (Negative) HPF Few Urine Casts (Negative) LPF Negative Urine Mucus (Negative) Negative Ur Culture Indicated? Yes Urine Glucose (Negative) mg/dL Negative
[2022-01-07] MEDS: Cephalexin 500 MG CAP PO (10:03)
[2022-01-07] MEDS: Phenazopyridine 200 MG TAB PO (10:03)
[2022-01-07 10:07] VITALS: BP 118/86; PULSE 81; RESP 16; O2SAT 96
== END 2022-01-07 10:07 | disposition home or self-care (01) ==
LOC: ER 10:11
PROVIDERS: Emergency Provider Nurse Practitioner Family; PCP Family Medicine
DX: N39.0 Urinary tract infection, site not specified (principal); B96.89 Other specified bacterial agents as the cause of diseases classified elsewhere
CPT/HCPCS: 99283; 81003; 81015; 87086

== ENCOUNTER 2022-04-24 11:01 | Emergency (ER) | payer OTHER, SELFPAY ==
[2022-04-24 11:21] VITALS: BP 109/80; PULSE 71; RESP 18; TEMP 36.8; O2SAT 96
[2022-04-24 11:33] LABS: Bilirubin Negative (Negative); Blood Trace-intact (Negative); Clarity Sl Cloudy (Clear); Glucose Negative (Negative); Ketones Negative (Negative); Leukocyte Esterase Moderate (Negative); Nitrite Negative (Negative); Urobilinogen 0.2 EU/dL (Up TO 0.2)
[2022-04-24 11:40] LABS: Bacteria Few HPF (Negative); Casts Negative LPF (Negative); Crystals Negative HPF (Negative); Epithelial Cells Few HPF (Negative); Mucus Trace (Negative)
[2022-04-24 11:41] LABS: C & S Indicated? No/Sq. Contamination
[2022-04-24 13:19] VITALS: BP 121/85; PULSE 77; RESP 19; TEMP 36.6; O2SAT 97
[2022-04-24 13:47] LABS: Bilirubin Negative (Negative); Blood Trace-intact (Negative); Clarity Sl Cloudy (Clear); Glucose Negative (Negative); Ketones Negative (Negative); Leukocyte Esterase Small (Negative); Nitrite Negative (Negative); Specific Gravity 1.025 (1.005-1.025); Urobilinogen 0.2 EU/dL (Up TO 0.2); pH 6.5 (5-8)
[2022-04-24 13:55] LABS: Bacteria Few HPF (Negative); C & S Indicated? No/Sq. Contamination; Casts Negative LPF (Negative); Crystals Negative HPF (Negative); Epithelial Cells Many HPF (Negative); Mucus Trace (Negative)
--- NOTE | 2022-04-24 14:50 | W.ED.GENAD ---
Discharge Plan Disposition Patient Disposition: HOME Condition: Stable Discharge Details Clinical Impression: UTI (urinary tract infection) Primary Care Provider: Gregorio Pappas ED Provider: Kristyn Byrd Home Meds and New Rx's Prescriptions: New cephalexin 500 mg capsule 500 mg PO BID 7 Days Qty: 14 0RF Continued citalopram 20 mg tablet 20 mg PO DAILY multivitamin [One-A-Day Essential] 1 EACH tablet 1 cap PO DAILY Premarin 1.25 MG tablet 1.25 mg PO DAILY terbinafine HCl 250 mg tablet 250 mg PO DAILY Label Comments: TAKE ONE TABLET BY MOUTH ONCE A DAY d-mannose 500 mg Capsule 1,000 mg PO DAILY phenazopyridine [Pyridium] 200 mg tablet 200 mg PO TID PRNQty: 4 0RF Discharge Instructions Instructions: Urinary Tract Infection in Women (ED) Additional Instructions: Your symptoms may be due to a urinary tract infection. With a contaminated urine sample and without a urine capture, your symptoms could be due to another cause of urinary urgency, frequency and pain with urination such as interstitial cystitis. As you have opted to proceed with antibiotics, a prescription for Keflex has been sent electronically to your pharmacy to take as directed until finished. Drink plenty of fluids and get plenty of rest. Alternate tylenol and motrin as needed and directed for pain. Take [id number] Azo or phenazopyridine to help with pain with urination. Follow-up with your primary care doctor in 1 week and and for referral to urology if your symptoms do not improve or worsen or for further evaluation of your chronic urinary tract infections. Return to the emergency department with any worsening or new concerning symptoms such as fever, persistent vomiting, back pain or any other concerns. Referrals: Willie Melvin MD [ [facility] STAFF PHYSICIAN] - Discharge Data Discharge Physician: Kristyn Byrd Medical Decision Making 41 year-old female with a history of endometriosis with laparoscopic and hysterectomy with frequent UTIs presents to the ED with a complaint of urinary frequency, urgency and dysuria for the past few days. Patient states she has had a history of a kidney infection in the past and states this does not feel similar as she felt much more sick at that time. Patient appears comfortable and nontoxic. She is afebrile. We obtained a urine sample here which both were contaminated. Discussed with patient at length and she does not want to provide a third urine sample. Review of records note that her previous urine cultures appeared contaminated. Her urine culture from October 2020 noted E. coli which was pansensitive. Patient would rather proceed with antibiotics. Discussed that her symptoms could be secondary to interstitial cystitis. She has been treated previously with Keflex which she would like to take for 7 days at this time. She was given 1 dose here and prescription sent electronically to her pharmacy. She was given urology follow-up information if needed. Usual and customary return precautions given prior to discharge. HPI General Mode of arrival: ambulatory. Date/Time Provider Initiated Documentation: 04/24/22 12:44. Limitations to Documentation: no limitations. Information obtained by: patient. HPI Narrative: Patient is a 41-year-old female with a history of chronic UTIs presents with urinary urgency, frequency and dysuria for the past few days. She denies any fever, vomiting, back or significant abdominal pain. Related Data Home Medications Medication Instructions Recorded Confirmed conjugated estrogens 1.25 mg 1.25 mg PO DAILY 12/21/14 01/07/22 tablet (Premarin) multivitamin (One-A-Day Essential 1 cap PO DAILY 12/21/14 01/07/22 tablet) terbinafine HCl 250 mg tablet 250 mg PO DAILY 10/22/21 01/07/22 citalopram 20 mg tablet 20 mg PO DAILY 11/23/21 d-mannose 500 mg capsule 1,000 mg PO DAILY 01/07/22 01/07/22 phenazopyridine 200 mg tablet 200 mg PO TID PRN #4 tabs 01/07/22 (Pyridium) cephalexin 500 mg capsule 500 mg PO BID 7 days #14 caps 04/24/22 Previous Rx's Medication Instructions Recorded phenazopyridine 200 mg tablet 200 mg PO TID PRN #4 tabs 01/07/22 (Pyridium) cephalexin 500 mg capsule 500 mg PO BID 7 days #14 caps 04/24/22 Allergies Allergy/AdvReac Type Severity Reaction Status Date / Time No Known Allergies Allergy Unverified 01/07/22 09:29 General Stated Complaint: Urinary IRON: 4 Review of Systems All systems reviewed & are unremarkable except as noted in HPI and below Constitutional Constitutional: Denies chills, Denies excessive sweating, Denies fatigue, Denies fever(s), Denies weakness and Denies weight loss Eyes Eyes: Reports system reviewed and no additional complaints, except as documented and Denies blurry vision ENT Ears, Nose, Mouth, and Throat: Denies vertigo, Denies dizziness, Denies otalgia, Denies nasal congestion, Denies sore throat and Denies throat swelling Cardiovascular Cardiovascular: Denies chest pain, Denies syncope, Denies rapid heart rate and Denies dyspnea Respiratory Respiratory: Denies chest congestion, Denies cough, Denies pain on inspiration and Denies dyspnea Gastrointestinal Gastrointestinal: Denies abdominal pain, Denies diarrhea and Denies vomiting Genitourinary Genitourinary: Denies hematuria, Reports dysuria, Denies flank pain and Reports urinary urgency Musculoskeletal Musculoskeletal: Denies back pain and Denies joint swelling Integumentary/Breasts Skin/Breast: Denies lesions and Denies rash Neurologic Neurologic: Denies behavioral changes, Denies confusion, Denies vertigo, Denies dizziness, Denies syncope, Denies localized weakness and Denies weakness Psychiatric Psychiatric: Denies behavioral changes, Denies confusion and Denies depression Endocrine Endocrine: Denies excessive sweating and Denies fatigue Hematologic/Lymphatic Hematologic/Lymphatic: Denies easy bruising and Denies lymphadenopathy Allergic/Immunologic Allergic/Immunologic: Denies throat swelling PFSH All Active Problems (Updated 04/24/22 @ 14:53 by Kristyn Byrd DO) UTI (urinary tract infection) (Acute) Family history of colon cancer (Acute) Medical History UTI (urinary tract infection) Social History Smoking/Tobacco Use Status: Former Tobacco Use Smoking risk assessment performed?: Yes Alcohol Intake: never Drug use: Never Substance use type: does not use Current gender identity: female Do you feel safe at home: Yes Do you feel safe in your relationship?: Yes Exam Const General: cooperative Orientation: alert, awake and oriented x3 HENMT Head: normal to inspection Ears: hearing grossly normal bilaterally, external ears normal and TM's normal bilaterally General nose exam: external nose normal Face and sinus: normal facial exam Mouth: oral mucosae normal Teeth and gingiva: dentition normal Throat: posterior oropharynx normal Eyes General: appearance normal, both eyes and all related structures Eyelids: eyelids normal Pupils: PERRL EOM: EOM intact bilaterally Neck Neck: normal visual inspection Lymphatic: no lymphadenopathy noted Chest Chest: normal inspection of the chest Resp Effort & Inspection: normal respiratory effort and able to speak in complete sentences Auscultation: clear to auscultation bilaterally Cardio Rate: regular rate Rhythm: regular rhythm GI Inspection: normal to inspection Palpation: soft, not firm, no guarding, no hepatosplenomegaly, no masses and nontender Auscultation: hypoactive bowel sounds Back/Spine/Pelvis Back: no CVA tenderness Skin General skin exam: no rashes or lesions noted Neuro General: patient alert and patient awake Cognition: normal cognition Speech: speech normal Gait: normal gait Motor: muscle tone normal throughout Sensory Exam: no sensory deficits noted Extrem General: normal to inspection, full ROM and capillary refill normal Psych Appearance: grossly normal Mental Status: mental status grossly normal Speech and Movement: speech and movement normal Affect: normal affect Thought Process: normal Course Vital Signs Vital signs: Vital Signs Temperature 98.2 F 04/24/22 11:21 Pulse 71 04/24/22 11:21 Respiratory Rate 18 04/24/22 11:21 Blood Pressure 109/80 04/24/22 11:21 Pulse Oximetry 96 04/24/22 11:21 Temperature 97.9 F 04/24/22 13:19 Temperature Source Skin 04/24/22 13:19 Pulse 77 04/24/22 13:19 Respiratory Rate 19 04/24/22 13:19 Blood Pressure 121/85 04/24/22 13:19 Blood Pressure Position Sitting 04/24/22 11:21 Pulse Oximetry 97 04/24/22 13:19 Oxygen Delivery Method Room Air 04/24/22 13:19 Oxygen Flow Rate 0 04/24/22 13:19 Lab/Test Results Lab/Test Results: Laboratory Tests Range/Units 04/24/22 04/24/22 11:24 13:30 Urine Color (Yellow) Yellow Yellow Urine Clarity (Clear) Sl Cloudy Sl Cloudy Urine pH (5-8) 7.0 6.5 Ur Specific [place] (1.005-1.025) 1.010 1.025 Urine Protein (Negative) mg/dL Negative Negative Urine Ketones (Negative) mg/dL Negative Negative Urine Blood (Negative) Trace-intact H Trace-intact H Urine Nitrite (Negative) Negative Negative Urine Bilirubin (Negative) Negative Negative Urine Urobilinogen (Up TO 0.2) EU/dL 0.2 0.2 Ur Leukocyte Esterase (Negative) Moderate H Small H Urine RBC (0-2) HPF 3-5 H 3-5 H Urine WBC (0-5) HPF 10-20 H 10-20 H Ur Epithelial Cells (Negative) HPF Few Many Urine Crystals (Negative) HPF Negative Negative Urine Bacteria (Negative) HPF Few Few Urine Casts (Negative) LPF Negative Negative Urine Mucus (Negative) Trace Trace Ur Culture Indicated? No/Sq. Contamination No/Sq. Contamination Urine Glucose (Negative) mg/dL Negative Negative POC- Test(urine) Negative
[2022-04-24] MEDS: Cephalexin 500 MG CAP PO (14:57)
[2022-04-24 15:06] VITALS: BP 121/85; PULSE 77; RESP 19; TEMP 36.6; O2SAT 97
== END 2022-04-24 15:08 | disposition home or self-care (01) ==
PROVIDERS: Physician Assistant; Emergency Provider Physician Assistant; PCP Family Medicine
DX: N39.0 Urinary tract infection, site not specified (principal); Z90.710 Acquired absence of both cervix and uterus; Z87.891 Personal history of nicotine dependence
CPT/HCPCS: 36415; 81025; 99283; 81003; 81015

== ENCOUNTER 2022-05-04 22:08 | Emergency (ER) | payer OTHER, SELFPAY ==
[2022-05-04 22:11] VITALS: BP 144/67; PULSE 80; RESP 14; TEMP 36.7; O2SAT 96
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
[2022-05-05] MEDS: Amox. 875/Clav. 125, 2 TABS/BTL 1 TAB PO (00:45)
== END 2022-05-05 01:09 | disposition home or self-care (01) ==
PROVIDERS: Emergency Provider Student in an Organized Health Care Education/Training Program; PCP Family Medicine
DX: S02.40EA Zygomatic fracture, right side, initial encounter for closed fracture (principal); S02.40CA Maxillary fracture, right side, initial encounter for closed fracture; S02.31XA Fracture of orbital floor, right side, initial encounter for closed fracture; V89.2XXA Person injured in unspecified motor-vehicle accident, traffic, initial encounter
CPT/HCPCS: 99284; 70450; 70486; 72125

== ENCOUNTER → 2022-09-26 14:19 | Outpatient (BNVA) | payer OTHER, SELFPAY | PROVIDERS: PCP Family Medicine; Referring Provider Family Medicine; Visit Provider Surgery | DX: Z80.0 Family history of malignant neoplasm of digestive organs (principal); Z12.11 Encounter for screening for malignant neoplasm of colon ==

== ENCOUNTER 2022-10-11 08:46 | Day surgery (SDC) | payer OTHER, SELFPAY ==
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
--- NOTE | 2022-10-10 19:34 | W.PM.DSUDISC ---
Date of service: 10/11/22 Time of Service: 10:58 Discharge Plan Disposition Patient Disposition: Home Condition: Good Discharge Details Reason For Visit: Screening colonoscopy Attending Provider: Vijay Taylor Primary Care Provider: Gregorio Pappas [place] Meds and New Rx's Prescriptions: Continued multivitamin [One-A-Day Essential] 1 EACH tablet 1 cap PO DAILY Premarin 1.25 MG tablet 1.25 mg PO DAILY d-mannose 500 mg Capsule 1,000 mg PO DAILY phenazopyridine [Pyridium] 200 mg tablet 200 mg PO TID PRNQty: 4 0RF Discontinued bisacodyl [Dulcolax (bisacodyl)] 5 mg tablet,delayed release (DR/EC) 5 mg PO ONCE Qty: 4 0RF Rx Instructions: Take according to provider's instructions for colonoscopy prep. polyethylene glycol 3350 17 gram/dose powder 17 g PO ONCE Qty: 238 0RF Rx Instructions: To be taken as directed by prescriber's office for colonoscopy prep. Discharge Instructions Additional Instructions: 1. If tolerated, consume a soft, low fiber diet for 1-2 days. 2[address] Do not drive, drink alcohol, operate machinery, make critical decisions, or do activities that require coordination or balance for 24 hours. 3. Because air was put into your colon during the procedure, expelling air from your rectum (passing gas or farting) is normal. 4. You may not have a bowel movement for 1-3 days because of the colonoscopy prep. This is normal. 5. Go directly to the emergency room if you notice any of the following: Develop chills (warm to touch), or if you have a thermometer and your temperature is above 101 Difficulty breathing or difficultly swallowing Persistent vomiting Severe abdominal pain, other than gas cramps Severe chest pain Black, tarry stools Any bleeding ? exceeding one tablespoon 6. Call your physician if the site where your intravenous was started becomes red, swollen, painful, and warm to touch. 7. Your physician has reviewed your pre-procedure medications. Please continue to take those medications as previously ordered. You will be given specific information/education regarding any changes to your medications before leaving. Activity:: Activity as Tolerated Diet:: As Tolerated Discharge Orders Discharge Orders: Discharge Order (Routine); Ordered 10/10/22 Ordered By: Vijay Taylor DS: Diagnosis Discharge Diagnosis (1) Family history of colon cancer: Status: Acute Asessment and Plan: Your colonoscopy was normal. Follow-up for your next screening test in 5 years because of your first-degree relative family history of colon cancer.
--- NOTE | 2022-10-10 19:36 | W.COLOREPORT ---
Date of service: 10/11/22 Time of Service: 10:57 Colonoscopy Report Date of procedure: 10/11/22 Pre-op diagnosis general: Screening colonoscopy Post-op diagnosis procedure note: same Procedure: Colonoscopy Surgeon: Vijay Taylor Anesthesia Type: General:No Airway Complications: None Disposition: same day Indications: Anali is a 42-year-old woman with a first-degree relative with colon cancer. She is here for her first colorectal cancer screening colonoscopy Prep: Miralax/Dulcolax Procedure Start Time: 10:26 Procedure End Time: 10:48 Retraction Time: 17 Findings: Normal colonoscopy Procedure Description: After the induction of monitored anesthetic care, and with the patient in left lateral decubitus position, I began by performing an external anorectal exam.? Perineum and skin were normal, as was the anal verge.? There was no evidence of external hemorrhoids.? Next, I performed a digital rectal exam.? I did not appreciate any abnormal findings.? Next, I advanced a colonoscope into the rectal vault.? I performed retroflexion.? This was normal.? Using insufflation, I then advanced the colonoscope beyond the rectal folds and into the sigmoid colon before advancing towards the cecum.? The quality of the prep was excellent.? The scope was noted to be in the cecum by identification of the ileocecal valve and appendiceal orifice.? I then began withdrawing the colonoscope using repeated irrigation as necessary for full evaluation of the colonic mucosa. ?Once the scope was withdrawn to the level of the rectum, great care was taken to examine portions of the rectal folds.? I did not see any evidence of polyps. finally, the scope was withdrawn and the patient was brought to the same-day surgery recovery unit as the anesthetic wore off. ?The findings and instructions were shared with the patient prior to discharge.
[2022-10-11 08:50] VITALS: BP 112/76; PULSE 83; RESP 18; TEMP 36.5; O2SAT 100
[2022-10-11] MEDS: Lactated Ringers 1,000 ML 80 ML IV (09:31)
[2022-10-11 10:11] VITALS: BMI 26.4
[2022-10-11 10:51] VITALS: BP 91/80; PULSE 78; RESP 18; TEMP 36.1; O2SAT 97
[2022-10-11 11:15] VITALS: BP 113/86; PULSE 68; RESP 16; TEMP 36.6; O2SAT 98
--- NOTE | 2022-10-11 11:37 | W.ANESPOSTOP ---
Postoperative Evaluation Date, Time and Location Date Performed: 10/11/22 Time Performed: 11:38 Patient Location: Day Surgery Unit Vital Signs Most Recent Imported Vital Signs: Most Recent Vital Signs Temp Pulse Resp BP Pulse Ox 36.6 C 68 16 113/86 98 10/11/22 11:15 10/11/22 11:15 10/11/22 11:15 10/11/22 11:15 10/11/22 11:15 Pain Score Most Recent Pain Score: Most Recent Pain Score Pain Level 0 10/11/22 11:15 Assessment Mental Status: Awake (Alert & Oriented to Patient Baseline) Airway and Respiratory Function: Patent airway with normal (patient baseline) respiratory exam Cardiovascular Function: Hemodynamically Stable Hydration Status: Adequately Hydrated Nausea & Vomiting: No Nausea or Vomiting Pain: Pt. Denies Any Pain Peripheral Nerve Block: Patient did not receive a nerve block
== END 2022-10-11 11:30 | disposition home or self-care (01) ==
PROVIDERS: PCP Family Medicine; Visit Provider Surgery
PROC: 0DJD8ZZ Inspection of Lower Intestinal Tract, Via Natural or Artificial Opening Endoscopic (ICD-10-PCS; CPT 45378; principal; 2022-10-11 10:15)
DX: Z12.11 Encounter for screening for malignant neoplasm of colon (principal); Z80.0 Family history of malignant neoplasm of digestive organs
CPT/HCPCS: 45378

== ENCOUNTER 2024-01-06 20:21 | Emergency (ER) | payer OTHER, SELFPAY ==
[2024-01-06 20:27] VITALS: BP 139/81; PULSE 102; RESP 18; TEMP 36.3; O2SAT 96
--- NOTE | 2024-01-06 20:27 | RT.EKG_ITS ---
APPROVED REPORT Exam: Resting ECG Reason for Exam: chest pain Patient Location: E HR:89 bpm ECG Measurements Heart Rate 89 AXIS AR 130 P 19 QRSd 85 QRS 6 QT 368 T -1 QTc 448 Conclusion Sinus rhythm 89 normal axis no stemi
--- NOTE | 2024-01-06 20:30 | RT.EKG_ITS ---
APPROVED REPORT Exam: Resting ECG Reason for Exam: chest pain Patient Location: E HR:86 bpm ECG Measurements Heart Rate 86 AXIS OK 132 P -33 QRSd 72 QRS 2 QT 378 T -11 QTc 453 Conclusion Sinus rhythm. 86 no stemi
[2024-01-06 20:31] VITALS: RESP 18
[2024-01-06 20:49] LABS: Abs Immature Grans 0.08 10^3/uL (0.0-0.06); Absolute Eosinophil Count 0.55 10^3/uL (0.0-0.7); Absolute Lymphocyte Count 2.31 10^3/uL (1.2-3.4); Absolute Monocyte Count 0.81 10^3/uL (0.1-0.8); Basophils % 0.6; Eosinophils % 3.2; HCT 39.3 % (36.0-46.0); HGB 12.8 g/dL (11.2-15.7); Immature Grans % 0.5; Lymphocytes % 13.3; MCH 28.8 pg (27.0-33.0); MCHC 32.6 % (32.0-36.0); MCV 89 fL (80-95); MPV 9.4 fL (8.0-11.0); Monocytes % 4.7; Neutrophils % 77.7; Platelet Count 277 10^3/uL (130-400); RBC 4.44 10^6/uL (3.93-5.22); RDW 12.4 % (11.7-14.6); RDW-SD 40.2 fL; WBC 17.34 10^3/uL (4.4-10.8)
[2024-01-06 20:51] LABS: Absolute Neutrophil Count 13.47 10^3/uL (1.2-6.7)
[2024-01-06 21:07] LABS: ALT 24 U/L (14-59); AST 28 U/L (15-37); Albumin 3.5 g/dL (3.4-5.0); Alkaline Phosphatase 100 U/L (46-116); Anion Gap 9.5 mmol/L (3-11); BUN 14 mg/dL (7-18); Bilirubin, Total 0.4 mg/dL (0.2-1.0); CO2 28.5 mmol/L (21.0-32.0); CREATININE 0.9 mg/dL (0.55-1.02); Calcium 9.1 mg/dL (8.5-10.1); Chloride 103 mmol/L (98-107); Estimated GFR 81.86 (mL/min/1.73m2); Glucose 105 mg/dL (74-106); Magnesium 1.8 mg/dL (1.8-2.4); Sodium 141 mmol/L (136-145); Total Protein 7.4 g/dL (6.4-8.2); Troponin I < 50 ng/L (< or =60)
[2024-01-06 22:26] LABS: D-Dimer 262 ng/mlFEU (<500)
[2024-01-06] MEDS: ACETAMINOPHEN 1,000 MG/100 ML BTL 400 MG IVPB (22:30)
[2024-01-06] MEDS: Albuterol HFA 8 GM 60 PUFF INH IH (22:31)
--- NOTE | 2024-01-06 22:49 | DI.RAD_ITS ---
Exam(s) XR CHEST 2V PA LATERAL EXAM: XR CHEST 2V PA LATERAL CLINICAL HISTORY: shortness of breath, cough, leukocytosis TECHNIQUE: 2D digital imaging was performed of the chest. Two images were obtained. PA and lateral views were obtained. COMPARISON: CR CHEST 2 VIEWS PA,LAT from 12/21/2014 FINDINGS: MEDIASTINUM: Normal. HEART: Normal. PULMONARY VASCULATURE: Normal. LUNGS: Clear. PLEURAL SPACE: No pleural effusion or pneumothorax. BONE:Within normal limits for the patient's age. OTHER FINDINGS:Normal. IMPRESSION: No acute pulmonary findings. DATA REPOSITORY: RADIATION DOSE DELIVERED:
--- NOTE | 2024-01-06 22:59 | ED.GENADUL_ITS ---
Discharge Plan Disposition Patient Disposition: Home Discharge Details Clinical Impression: Chest pain, Elevated WBC count, Bronchitis Primary Care Provider: Gregorio Pappas ED Provider: Kendy Fisher Home Meds and New Rx's Prescriptions: New prednisone 20 mg tablet 40 mg PO ONCE Qty: 6 0RF doxycycline monohydrate 100 mg tablet 100 mg PO BID Qty: 14 0RF Continued multivitamin [One-A-Day Essential] 1 EACH tablet 1 cap PO DAILY Premarin 1.25 MG tablet 1.25 mg PO DAILY d-mannose 500 mg Capsule 1,000 mg PO DAILY Discharge Instructions Instructions: Chest Pain (ED), Acute Bronchitis (ED), Leukocytosis (ED) Additional Instructions: Take the doxycycline as prescribed Take the prednisone as prescribed Yogurt daily while on the antibiotic Please follow-up with your primary care physician for close outpatient reassessment, please have your white blood cell count rechecked by your doctor Should you have worsening symptoms please be reassessed Return earlier should you have new or worsening complaints Referrals: Gregorio Pappas [Primary Care Provider] - Discharge Data Discharge Date/Time-TO BE ENTERED AT DEPARTURE: 01/07/24 00:09 HPI General Date/Time Provider Initiated Documentation: 01/06/24 20:30 . HPI Narrative: This 43-year-old female presents with report of chest heaviness that started 1 hour ago. Patient states she has been sick for approximately 3 weeks with a cough. She denies any associated abdominal pain. She denies any fever. Denies any calf pain or swelling. Denies any history of hypertension, hyperlipidemia, early coronary artery disease. Denies any recent flights, surgeries, long drives. Takes oral progesterone status post hysterectomy several years ago. Denies known exacerbating relieving factors aside from some slight increase in pain with deep breathing. Related Data Home Medications Medication Instructions Recorded Confirmed conjugated estrogens 1.25 mg 1.25 mg PO DAILY 12/21/14 01/06/24 tablet (Premarin) multivitamin (One-A-Day Essential 1 cap PO DAILY 12/21/14 01/06/24 tablet) d-mannose 500 mg capsule 1,000 mg PO DAILY 01/07/22 01/06/24 doxycycline monohydrate 100 mg 100 mg PO BID #14 tabs 01/06/24 tablet prednisone 20 mg tablet 40 mg (2 x 20 mg) PO ONCE #6 tabs 01/06/24 Previous Rx's Medication Instructions Recorded doxycycline monohydrate 100 mg 100 mg PO BID #14 tabs 01/06/24 tablet prednisone 20 mg tablet 40 mg (2 x 20 mg) PO ONCE #6 tabs 01/06/24 Allergies Allergy/AdvReac Type Severity Reaction Status Date / Time No Known Allergies Allergy Unverified 01/06/24 20:30 General Stated Complaint: Chest Pain IRON: 3 Course Vital Signs Vital signs: Vital Signs Temperature 36.3 C L 01/06/24 20:27 Pulse 102 H 01/06/24 20:27 Respiratory Rate 18 01/06/24 20:27 Blood Pressure 139/81 01/06/24 20:27 Pulse Oximetry 96 01/06/24 20:27 Temperature 36.3 C L 01/06/24 20:27 Temperature Source Oral 01/06/24 20:27 Pulse 102 H 01/06/24 20:27 Respiratory Rate 18 01/06/24 20:31 Respiratory Effort Normal, Non-Labored 01/06/24 20:31 Respiratory Depth Normal 01/06/24 20:31 Respiratory Pattern Normal 01/06/24 20:31 Blood Pressure 139/81 01/06/24 20:27 Blood Pressure Position Sitting 01/06/24 20:27 Pulse Oximetry 96 01/06/24 20:27 Pain Level 4 01/06/24 20:27 Lab/Test Results Lab/Test Results: Laboratory Tests Range/Units 01/06/24 01/06/24 20:44 20:49 WBC (4.4-10.8) 10^3/uL 17.34 H RBC (3.93-5.22) 10^6/uL 4.44 Hgb (11.2-15.7) g/dL 12.8 Hct (36.0-46.0) % 39.3 MCV (80-95) fL 89 MCH (27.0-33.0) pg 28.8 MCHC (32.0-36.0) % 32.6 RDW (11.7-14.6) % 12.4 Plt Count (130-400) 10^3/uL 277 MPV (8.0-11.0) fL 9.4 Immature Gran % 0.5 Neutrophils % 77.7 Lymphocytes % 13.3 Monocytes % 4.7 Eosinophils % 3.2 Basophils % 0.6 Nucleated RBC % (0.0-0.3) % 0.0 Absolute Neutrophils (1.2-6.7) 10^3/uL 13.47 H Absolute Lymphocytes (1.2-3.4) 10^3/uL 2.31 Absolute Monocytes (0.1-0.8) 10^3/uL 0.81 H Absolute Eosinophils (0.0-0.7) 10^3/uL 0.55 Absolute Basophils (0.0-0.2) 10^3/uL 0.10 D-Dimer (<500) ng/mlFEU 262 Sodium (136-145) mmol/L 141 Potassium (3.5-5.1) mmol/L 4.0 Chloride (98-107) mmol/L 103 Carbon Dioxide (21.0-32.0) mmol/L 28.5 Anion Gap (3-11) mmol/L 9.5 BUN (7-18) mg/dL 14 Creatinine (0.55-1.02) mg/dL 0.9 Est GFR (CKD-EPI 2020) (mL/min/1.73m2) 81.86 Glucose (74-106) mg/dL 105 Calcium (8.5-10.1) mg/dL 9.1 Magnesium (1.8-2.4) mg/dL 1.8 Total Bilirubin (0.2-1.0) mg/dL 0.4 AST (15-37) U/L 28 ALT (14-59) U/L 24 Alkaline Phosphatase (46-116) U/L 100 Troponin I (< or =60) ng/L < 50 Total Protein (6.4-8.2) g/dL 7.4 Albumin (3.4-5.0) g/dL 3.5 Medical Decision Making 43-year-old female presenting with chest pain which started this evening, cough, cold symptoms for the past 3 weeks Pain started while at rest Patient is alert and oriented x 3, lungs clear to auscultation, reproducible chest wall tenderness, no abdominal tenderness appreciated on exam, lungs clear to auscultation bilaterally, no peripheral edema, no calf swelling or tenderness, neurovascularly intact to bilateral lower extremities Heart score 1, afebrile and nontoxic although significant leukocytosis of 17,000 in the presence of a cough for the past 3 weeks with now some chest pressure, will start patient on doxycycline for pneumonia versus bronchitis, chest x-ray does not show evidence of acute abnormality per radiology interpretation my review Given I albuterol inhaler, did not have much relief Will start patient on prednisone for mild pressure and shortness of breath D-dimer negative, 276, reassuring without obvious hypoxia Patient will need white count rechecked by primary care physician in the next several weeks, she will complete doxycycline empirically for pneumonia versus bronchitis She is given low threshold to return should she have new or worsening complaints We discussed ordering a second troponin, patient has declined at this time, she is fully alert, oriented, of decisional capacity and understands that she has not been fully evaluated for her chest pain She does report headache at time of reassessment, requesting medication will give Toradol and Compazine and write patient for discharge home Return precautions reviewed and patient expressed understanding Quality:SDOH Health Related Social Needs: No Data to Display PFSH All Active Problems (Updated 01/06/24 @ 23:55 by NANO Gay) Bronchitis (Acute) Elevated WBC count (Acute) Chest pain (Acute) Family history of colon cancer (Acute) Medical History (Updated 01/06/24 @ 23:55 by NANO Gay) UTI (urinary tract infection) Surgical History History of laparoscopy History of hysterectomy Social History Smoking/Tobacco Use Status: Former Tobacco Use Smoking risk assessment performed?: Yes Alcohol Intake: never Drug use: Never Substance use type: does not use Current gender identity: female Do you feel safe at home: Yes Do you feel safe in your relationship?: Yes
--- NOTE | 2024-01-06 23:14 | DI.VRAD_ITS ---
PROCEDURE INFORMATION: Exam: XR Chest Exam date and time: 01/06/2024 10:45 PM Age: 43 years old Clinical indication: Other: Shortness of breath, cough, leukocytosis; Additional info: PT unable to remove piercing. TECHNIQUE: Imaging protocol: Radiologic exam of the chest. Views: 2 views. COMPARISON: CT HEAD CERV SPINE FACIAL WO 05/04/2022 10:48 PM FINDINGS: Lungs: Unremarkable. No consolidation. Pleural spaces: Unremarkable. No pleural effusion. No pneumothorax. Heart/Mediastinum: Unremarkable. No cardiomegaly. Bones/joints: Unremarkable. IMPRESSION: No acute findings. Dictated and Authenticated by: Héctor Horta MD. Ordering:ALBERT Larry MD
[2024-01-06 23:16] LABS: COVID-19 PCR Negative (Negative); Influenza A PCR Negative (Negative); Influenza B PCR Negative (Negative); RSV PCR Negative (Negative)
[2024-01-06 23:19] LABS: Source Nasopharynx
[2024-01-06 23:22] VITALS: BP 100/65; PULSE 77; RESP 16; O2SAT 99
[2024-01-07] MEDS: Ketorolac 15 MG/ML VIAL 7.5 MG IVP
[2024-01-07] MEDS: Doxycycline Hyclate 100 MG, 2 CAPS/BTL PO (00:01)
[2024-01-07] MEDS: predniSONE 20 MG TAB 40 MG PO (00:01)
[2024-01-07] MEDS: Prochlorperazine 10 MG/2 ML VIAL 5 MG IVP (00:01)
--- NOTE | 2024-01-09 08:25 | NUR.NOTE ---
in chart to check the status of ECG Nursing Note:
== END 2024-01-07 00:09 | disposition home or self-care (01) ==
PROVIDERS: Emergency Provider Physician Assistant; PCP Family Medicine
DX: R07.89 Other chest pain (principal); D72.829 Elevated white blood cell count, unspecified; J40 Bronchitis, not specified as acute or chronic; Z11.52 Encounter for screening for COVID-19
CPT/HCPCS: 80053; 87637; 93005; 96374; 96375; 99285; 71046; 83735; 84484; 85025; 85379; 93010; 99284; J0131; J0780; J1885; J7512

== ENCOUNTER 2024-05-20 17:38 | Outpatient (CLI) | payer OTHER, SELFPAY ==
[2024-05-20 13:47] LABS: Abs Immature Grans 0.03 10^3/uL (0.0-0.06); Absolute Eosinophil Count 0.62 10^3/uL (0.0-0.7); Absolute Neutrophil Count 4.59 10^3/uL (1.2-6.7); Eosinophils % 6.4 %; HCT 39.3 % (36.0-46.0); HGB 12.7 g/dL (11.2-15.7); Immature Grans % 0.3 %; Lymphocytes % 39.4 %; MCH 28.5 pg (27.0-33.0); MCHC 32.3 % (32.0-36.0); MCV 88 fL (80-95); MPV 9.6 fL (8.0-11.0); Monocytes % 5.2 %; Neutrophils % 47.7 %; Platelet Count 303 10^3/uL (130-400); RBC 4.45 10^6/uL (3.93-5.22); RDW 12.3 % (11.7-14.6); WBC 9.64 10^3/uL (4.4-10.8)
[2024-05-20 15:13] LABS: ALT 26 U/L (14-59); AST 18 U/L (15-37); Albumin 3.4 g/dL (3.4-5.0); Alkaline Phosphatase 94 U/L (46-116); BUN 10 mg/dL (7-18); Bilirubin, Total 0.27 mg/dL (0.2-1.0); CREATININE 0.8 mg/dL (0.55-1.02); Calcium 9.7 mg/dL (8.5-10.1); Calculated LDL 110 mg/dL (<100); Chloride 104 mmol/L (98-107); Cholesterol 230 mg/dL (<200); Estimated GFR 94.28 (mL/min/1.73m2); Glucose 84 mg/dL (74-106); HDL Cholesterol 87 mg/dL (40-60); Sodium 141 mmol/L (136-145); Total Protein 7.6 g/dL (6.4-8.2); Triglyceride 169 mg/dL (<150)
--- OUTSIDE RECORDS SUMMARY | 2024-05-20 17:40 | XMS_ITS ---
Author Organization [facility] Address [address] [place], [place] [id number] Care Team Providers Care Heel Sewer Name Role Phone GREGORIO PAPPAS Primary Care Provider Allergies No Known Allergies REASON FOR VISIT discuss anti depression meds, congestion Medications Medication SIG (Take, Route, Frequency, Duration) Notes Start Date End Date Status Wellbutrin XL 300 MG 1 tablet in the mor katalina Orally Once a day for 30 days 05/20/2024 Active Fluticasone Propionate 50 MCG/ACT 1 spray in each nostril once daily for 30 day(s) 05/20/2024 Active Premarin 1.25 MG 1 tablet Orally Once a day for 90 days Active Vital Signs Blood pressure systolic 126 mmHg 05/20/20 24 Blood pressure diastolic 76 mmHg 024 Height 65.75 in 05/20/2024 Weight 177 lbs 05/20/2024 BMI 28.78 05/20/2024 Weight-kg 80.29 kg 05/20/2024 Encounters Encounter Location Date Provider Diagnosis [facility] [address] [place], [place] [phone] 05/20/2024 GREGORIO PAPPAS Adjustment reaction with anxiety and depression F43.23 ; Chronic nasal congestion R09.81 and Sacroiliac dysfunction M53.3 Assessments Encounter Date Diagnosis (ICD Code) Assessment Notes Treat ment Notes Treatment Clinical Notes 05/20/2024 Adjustment reaction with anxiety and depression (ICD-10 - F43.23) 05/20/2024 Chronic nasal congestion (ICD-10 - R09.81) 05/20/2024 Sacroiliac dysfunction (ICD-10 - M53.3) Plan Of Treatment Medication Medication Name Sig Start Date Stop Date Notes Wellbutrin XL 300 MG 1 tablet in the mor katalina Orally Once a day for 30 days 05/20/2024 Fluticasone Propionate 50 MCG/ACT 1 spray in each nostril once daily for 30 day(s) 05/20/2024 Pending Test Test Name Order Date CBC W/ DIFFERENTIAL* 05/20/2024 COMPREHENSIVE METABOLIC PANEL (CMP) 04/2024 LIPID PANEL 05/20/2024 Progress Notes * Anali SMITHDOB: [birth year] (43 yo F)Acc No.[id number]:05/20/2024 Patient:?Anali SMITH Provider:?Gregorio Pappas MD :1980???Age:43 Y???Sex:Female D ate:05/20/2024 Address:[address] [place] [address], [facility], [id number] Subjective: * Chief Complaints: * ???Discuss anti depression m eds, congestion * HPI: ???Depression Screening:?PHQ-9?Little interest or pleasure in doing things?Nearly every day ?Feeling down, depressed, or hopeless?Nearly every day ?Trouble falling or staying asleep, or sleeping too much?Nearly every day ?Feeling tired or having little energy?Nearly every day ?Poor appetite or overeating?Nearly every day ?Feeling bad about yourself or that you are a failure, or have let yourself or your family down?Nearly every day ?Trouble concentrating on things, such as reading the newspaper or watching television?Nearly every day ?Moving or speaking so slowly that other people could have noticed; or the opposite, being so fidgety or restless that you have been moving around a lot more than usual?Nearly every day ?Thoughts that you would be better off or of hurting yourself in some way?Several days (Consider Suicide Assessment Risk) ?Total Score?25 ?Interpretation?Severe Depression ???TFM History Taken by Nursing Staff:? going back on antidepressant alot of stress right now.? Also dealing with allergies, has been using OTC, no relief. ???TFM Depression Screening:?Intervention?Depression Screening Findings?Positve ?Follow-Up for Depression?Implementation of measures to provide psychological support ???TFM Follow-up:?she comes in because she is feeling issues with depression.? She has some conflict with her daughter who has gender issues, she gets teary, has trouble controlling her anger. In the past when she felt like this she has been on antidepressants and Wellbutrin worked better or she will get a tattoo and piercing.? She feels she needs to go back on medication. No substances.? Mental suicidality.? She asked about some chronic nasal congestion at how she can manage at how she can manage her weight better and about some discomfort in her anterior superior iliac spines when she lies flat on her back in bed that resolves when she gets up and moves around. * Medical History:? * Surgical History:? * Hospitalization/Major Diagno stic Procedure:? * Medications:?TakingPremarin 1.25 MG Tablet 1 tablet Orally Once a day Taking Premarin 1.25 MG Tablet 1 tablet Orally Once a day DiscontinuedCefpodoxime Proxetil 200 MG Tablet 1 tablet with food Orally Twice a day Discontinued Cefpodoxime Proxetil 200 MG Tablet 1 tablet with food Orally Twice a day * Allergies:?N.K.D.A.no[Allerg ies Verified] Objective: * Vitals:?Nurse Initials: LAW, Height: 65.75 in, Weight:177lbs, BMI:28.78, BP:126/76mmHg, Ht-cm: 167.01 cm, Wt-k.29 kg. * Examination: ???General Examination: ?PSYCH:?alert, oriented , cognitive function intact , good eye contact , speech clear , thought content without suicidal ideation, delusions , mood/affect full range , judgement and insight good.?good range of motion of her lumbar spine with minimal tenderness in the sacroiliac joints negative straight leg raise good hip range of motion negative MARTIN test. Assessment: * Assessment: 1.?Adjustment reaction with anxiety and depression - F43.23 (Primary)???2.?Chronic nasal congestion - R09.81???3.?Sacroiliac dysfunction - M53.3?reassured this is just a co ntusion she can do what ever activity she feels comfortable doing and asked to let me know in a month how she is doing. Discussed potential side effects and expectations.? We talked about using fluticasone for nasal congestion and I expect that this is a sacroiliac issue that she is getting in bed and we talked about exercise and stretching Plan: * Treatment: 2.?Chronic nasal congestion? Start Fluticasone Propionate Suspension, 50 MCG/ACT, 1 spray, in each nostril, once daily, 30 day(s), 1 bottle, Refills 11.?? * Procedure Codes:? * Billing Information: * Visit Code:? 38114 Office Visit, Est Pt., Level 3. * Procedure Codes:? * Sign off status: Completed true * Provider:?Gregorio Pappas MD Date:? 024 Generated for Thomas gonsalves/Isma/eTransmitting on:?05/20/2024 05:39 PM EDT History and Physical Notes * HPI (History of Present Illness) Category Sub-Category Detail Notes Depression Screening PHQ-9 Little inte rest or pleasure in doing things: Nearly every day Feeling down, depressed, or hopeless: Ne shakeel every day Trouble falling or staying asleep, or sl eeping too much: Nearly every day Feeling tired or having little energy: N early every day Poor appetite or overeating: Nearly ever y day Feeling bad about yourself o r that you are a failure, or have let yourself or your family down: Nearly every day Trouble concentrating on thi ngs, such as reading the newspaper or watching television: Nearly every day Moving or speaking so slowly that other people could have noticed; or the opposite, being so fidgety or restless that you have been moving around a lot more than usual: Nearly every day Thoughts that you would be b alex off or of hurting yourself in some way: Several days (Consider Suicide Assessment Risk) Total Score: 25 Interpretation: Severe Depression TFM Depression Screening Intervention Depression Tiny darden Findings: Positve Follow-Up for Depression: Im plementation of measures to provide psychological support Examination Category Sub-Category Detail Notes General Examination PSYCH: alert, orien manjinder , cognitive function intact , good eye contact , speech clear , thought content without suicidal ideation, delusions , mood/affect full range , judgement and insight good
--- OUTSIDE RECORDS SUMMARY | 2024-05-20 17:40 | XMS_ITS ---
Author Organization [facility] Address [address] [place], [place] [id number] Care Team Providers Care Engineering Technologist Name Role Phone SARAI PARSONS Primary Care Provider REASON FOR VISIT rx Medications Medication SIG (Take, Route, Fr equency, Duration) Notes Start Date End Date Status Premarin 1.25 MG 1 tablet Orally Once a day for 90 days Active Encounters Encounter Location Date Provider Diagnosis [facility] [address] [place], [place] [id number] 10/08/2023 SARAI PARSONS Hormone replacement therapy Z79.890 Assessments Encounter Date Diagnosis (ICD Code) Assessment Notes Treat ment Notes Treatment Clinical Notes 10/08/2023 Hormone replacement therapy (ICD-10 - Z79.890) Plan Of Treatment Medication Medication Name Sig Start Date Stop Date Notes Premarin 1.25 MG 1 tablet Orally Once a day for 90 days Progress Notes * Anali SMITHDOB: [birth year] (43 yo F)Acc No.[id number]:10/08/2023 Patient:?Sheba SMITHica :1980???Age:43 Y???Sex:Female Address:[place] [address] * Refills? Refill Premarin Tablet, 1.25 MG, Orally, 90 Tablet, 1 tablet, Once a day, 90 days, Refills=1 * true * Date:? Generated for Printi ng/Faxing/eTransmitting on:?05/20/2024 05:40 PM EDT
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
--- OUTSIDE RECORDS SUMMARY | 2024-05-20 17:40 | XMS_ITS | Encounter Summary ---
Author Organization [facility] Address [facility] [place] [address] Care Team Providers Care Farm Adviser Name Role Phone Unavailable Primary Care Provider Unavailabl e Encounter Details Date Type Department Care Team (Late st Contact Info) Description 05/04/2022 Ancillary Procedure [place] [address] José Miguel Nair MD [facility] [place] [address] Social History Tobacco Use Types Packs/Day Years Used Date Smoking Tobacco: Never Assessed Sex and Gender Information Value Date Recorded Sex Assigned at Not on file Gender Identity Not on file Sexual Orientation Not on file documented as of this encounter Plan of Treatment Not on file documented as of this encounter Procedures Procedure Name Priority Date/Time Associated Diagnosis Comments FILM LIBRARY STORAGE ONLY CT HEAD AND SPINE Routine 05/04/2022 12:00 AM EDT documented in this encounter Results * Film Library- Storage Only CT Head And Spine (05/04/2022 12:00 AM EDT) Narrative RADHA - 05/05/2022 12:48 AM EDT This exam is auto-finalizing. It's purpose is for storage only. José Miguel Nair MD IMG FILM LIBRARY ORD ERABLES [place], [place] documented in this encounter Visit Diagnoses Not on filedocumented in this encounter
--- OUTSIDE RECORDS SUMMARY | 2024-05-20 17:40 | XMS_ITS | Patient Health Record ---
Author Organization [facility] Address [address] [place], [place] [id number] Care Team Providers Care Health Workers Name Role Phone SARAI PARSONS Primary Care Provider Allergies No Known Allergies Reason For Referral No Information Medications Medication SIG (Take, Route, Frequency, Duration) Notes Start Date End Date Status Wellbutrin XL 300 MG 1 tablet in the mor katalina Orally Once a day for 30 days 05/20/2024 Active Fluticasone Propionate 50 MCG/ACT 1 spray in each nostril once daily for 30 day(s) 05/20/2024 Active Premarin 1.25 MG 1 tablet Orally Once a day for 90 days Active Immunizations Vaccine Route Administration Date Status Comme nts Covid-19 Moderna Unknown 09/15/2021 Administered Covid-19 Moderna Bivalent 12y+ Unknown 08/15/2022 Admin istered Covid-19 Moderna Dose 1 Unknown 10/31/2020 Administered Covid-19 Moderna Dose 2 Unknown 11/28/2020 Administered Tdap Unknown 11/06/2016 Administered Problems Problem Type SNOMED Code ICD Code Onset Dates Problem Status W/U Status Risk Notes Problem 556812157 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 Problem 364930197 Adjustment react ion with anxiety and depression (F43.23) Active confirmed Vital Signs Heart Rate 80 /min 12/03/2023 Blood pressure diastolic 76 mmHg 05/20/2024 Weight-kg 80.29 kg 05/20/2024 Height 65.75 in 05/20/2024 Blood pressure systolic 126 mmHg 05/20/2024 Weight 177 lbs 05/20/2024 BMI 28.78 05/20/2024 Encounters Encounter Location Date Provider Diagnosis [facility] [address] [place], [place] [id number] 12/03/2023 SARIA PARSONS Annual physical exam Z00.00 ; Hormone replacement therapy Z79.890 ; Recurrent UTI N39.0 and Breast cancer screening Z12.39 [facility] [address] [place], [place] [id number] 05/20/2024 SARAI PARSONS Adjustment reaction with anxiety and depression F43.23 ; Chronic nasal congestion R09.81 and Sacroiliac dysfunction M53.3 [facility] [address] [place], [place] [id number] 07/15/2023 SARAI PARSONS Recurrent UTI N39.0 [facility] [address] [place], [place] [id number] 10/08/2023 SARAI PARSONS Hormone replacement therapy Z79.890 Assessments Encounter Date Diagnosis (ICD Code) Assessment Notes Treat ment Notes Treatment Clinical Notes 07/15/2023 Recurrent UTI (ICD-10 - N39.0) 10/08/2023 Hormone replacement therapy (ICD-10 - Z79.890) 12/03/2023 Hormone replacement therapy (ICD-10 - Z79.890) 12/03/2023 Annual physical exam (ICD-10 - Z00.00) 05/20/2024 Adjustment reaction with anxiety and depression (ICD-10 - F43.23) 05/20/2024 Chronic nasal congestion (ICD-10 - R09.81) 12/03/2023 Recurrent UTI (ICD-10 - N39.0) 05/20/2024 Sacroiliac dysfunction (ICD-10 - M53.3) 12/03/2023 Breast cancer screening (ICD-10 - Z12.39) Plan Of Treatment Pending Test Test Name Order Date URINALYSIS WITH REFLEX CULT IF POSITIVE* 10/30/2021 CBC W/ DIFFERENTIAL* 05/20/2024 COMPREHENSIVE METABOLIC PANEL (CMP) 04/2024 LIPID PANEL 05/20/2024 MM SCREENING BILAT MAMMO W PEDRO W CAD Future Test Test Name Order Date CBC W/ DIFFERENTIAL* 07/14/2023 COMPREHENSIVE METABOLIC PANEL (CMP) 10/2022 LIPID PANEL 07/14/2023 Insurance Providers Payer Name Payer Address Payer Phone Subscriber Number Group Number Insured Name Patient Relationship to Insured Coverage Start Date Coverage End Date [employer]BA Blue formerly Comprehensive Benefit [address] [place] [address] [id number] Anali Linton Self - patient is the insured Medical (General) History Medical History History ICD Code endometriosis Family history colon cancer father at 55 Surgical History Surgery Date(Month/Year) hysterectomy laproscopic
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
--- OUTSIDE RECORDS SUMMARY | 2024-05-20 17:40 | XMS_ITS | Clinical Summary ---
Author Organization [facility] [place] [address] Care Team Providers Care Guard Immigration Name Role Phone Gregorio Pappas MD Primary Care Provider [phone] Allergies No known active allergies Medications Medication Sig Dispensed Refills Start Date End Date Status estrogens, conjugated, (PREMARIN) 1.25 mg Tablet every 24 hours. Active Active Problems No known active problems Social History Tobacco Use Types Packs/Day Years Used Date Smoking Tobacco: Never Smokeless Tobacco: Never Sex and Gender Information Value Date Recorded Sex Assigned at Not on file Gender Identity Not on file Sexual Orientation Not on file Last Filed Vital Signs Vital Sign Reading Time Taken Comments Blood Pressure - - Pulse - - Temperature - - Respiratory Rate - - Oxygen Saturation - - Inhaled Oxygen Concentration - - Weight 69.8 kg (153 lb 12.8 oz) 05/09/2022 3:54 PM EDT Height 165.1 cm (5' 5) 05/09/2022 3:54 PM EDT Body Mass Index 25.59 05/09/2022 3:54 PM EDT Plan of Treatment Health Maintenance Due Date Last Done Comments HIV screen 1999 Hepatitis C Screening 1999 Hepatitis B vaccine (0-59 yrs) (1) 2000 Tdap adult 2000 Tetanus vaccine 2000 HPV test 2011 PAP Smear 2011 Breast Cancer Share Decision Needed 2021 Breast Cancer screening 2021 Diabetes Screening (HgbA1C or Glucose) 2021 Covid-19 Vaccine ( - season) 2023 Influenza (Flu) vaccine (1 o f 1 - Influenza standard series) 06/14/2024 Care Teams Guard Immigration Relationship Specialty Start Date End Date Gregorio Pappas MD [address] [place] [address] [place] [id number] PCP - General Family Medicine 07/25/22
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
== END 2024-05-20 17:39 | disposition home or self-care (01) ==
LOC: LBO 17:38
PROVIDERS: PCP Family Medicine; Visit Provider Family Medicine
DX: F43.23 Adjustment disorder with mixed anxiety and depressed mood (principal)
CPT/HCPCS: 36415; 80053; 80061; 85025

== ENCOUNTER 2024-05-26 02:00 | Outpatient (CLI) | payer OTHER, SELFPAY ==
--- NOTE | 2024-05-26 | DI.MAMMO_ITS ---
Exam(s) MAMMO SCREENING EXAM: MAMMO SCREENING CLINICAL HISTORY: SCREENING, Z12.39 TECHNIQUE: Bilateral full field digital CC and MLO mammographic images were obtained with 3D tomosyn thesis and utilizing computer aided detection (CAD). COMPARISON: This is a baseline examination. FINDINGS: Masses/Architectural Distortion: There is a 4 mm nodule in the upper outer quadrant of the left breas t with slightly irregular borders. This area should be further evaluated with spot compression view. Microcalcifications: No suspicious pleomorphic-type are seen. Skin Thickening/Nipple Retraction: None. IMPRESSION: 1. 4 mm nodule in the upper outer quadrant of the left breast. 2. This area should be further evaluated with a spot compression view. Ultrasound may be indicated a t that time. BI-RADS Category 0 - Incomplete: Need additional imaging evaluation Breast Density - Category B - Scattered areas of fibroglandular density Breast density category C or D implies that the patient has dense breast tissue. Dense breast tissue is very common and is not abnormal but dense breast tissue can make it harder to find cancer on a ma mmogram. Also, dense breast tissue may increase their breast cancer risk. This information about the result of the mammogram report was provided to the patient to raise their awareness. Use this report when you speak with the patient about their risks for breast cancer, which includes their family hist ory. At that time, you may recommend for more screening tests (Ultrasound or MRI) as they might be us eful based on their risk. A negative radiographic report should not delay biopsy if a dominant or clinically suspicious mass is present. Up to ten percent of cancers are not identified on mammography. A negative report may reinforce clinical impression. Adenosis and dense breasts may obscure an underlying neoplasm. False positive reports average 6 to 10%. Patient will receive a letter notifying them of these results.
--- OUTSIDE RECORDS SUMMARY | 2024-05-26 02:02 | XMS_ITS ---
Author Organization [facility] Address [address] [place], [place] [id number] Care Team Providers Care Usability Strategist Name Role Phone GREGORIO PAPPAS Primary Care [...] 05/20/2024 Encounters Encounter Location Date Provider Diagnosis [facility] [address] [place], [place] [id number] 05/20/2024 GREGORIO PAPPAS Adjustment reaction with anxiety [...] * Anali SMITHDOB: [birth year] (43 yo F)Acc No.[id number]:05/20/2024 Patient:?Anali SMITH Provider:?Gregorio Pappas MD :1980???Age:43 Y???Sex:Female D ate:05/20/2024 Address:[address] [place] [address], [facility], [id number] Subjective: * Chief Complaints: * ???Discuss anti [...] Codes:? * Billing Information: * Visit Code:? 48948 Office Visit, Est Pt., Level 3. * Procedure Codes:? * Sign off status: Completed true * Provider:?Gregorio Pappas MD Date:? 024 Generated for Thomas gonsalves/Isma/eTransmitting on:?05/26/2024 02:01 AM EDT History and Physical Notes * HPI [...]
--- OUTSIDE RECORDS SUMMARY | 2024-05-26 02:02 | XMS_ITS | Encounter Summary ---
Author Organization [facility] Address [facility] [place] [address] Care Team Providers Care Tabulating Machine Mechanic Name Role Phone Unavailable Primary Care Provider Unavailabl e Encounter Details Date Type Department Care Team (Late st Contact Info) Description 05/04/2022 Ancillary Procedure [place] [address] José Miguel Nair MD [facility] [place] [address] Social History Tobacco Use Types Packs/Day Years [...] Nair MD IMG FILM LIBRARY ORD ERABLES [place], [place] documented in this encounter Visit Diagnoses Not on filedocumented in this encounter
--- OUTSIDE RECORDS SUMMARY | 2024-05-26 02:02 | XMS_ITS | Encounter Summary ---
Author Organization [facility] Address [facility] [place] [address] Care Team Providers Care Mortuary Technician Name Role Phone Gregorio Pappas MD Primary Care Provider [phone] Encounter Details Date Type Department Care Team (Late st Contact Info) Description 07/25/2022 11:00 AM EDT Office [place] [address] Mary Nair MD [facility] [place] [address] Facial injury, subsequent encounter Social History Tobacco [...] encounter documented in this encounter Care Teams Mortuary Technician Relationship Specialty Start Date End Date Gregorio Pappas MD [address] [place] [address] PCP - General Family Medicine 07/25/22 documented as of this encounter
--- OUTSIDE RECORDS SUMMARY | 2024-05-26 02:02 | XMS_ITS | Encounter Summary ---
Author Organization [facility] Address [facility] [place] [address] Care Team Providers Care Color Print Inspector Name Role Phone Unavailable Primary Care Provider Unavailabl e Encounter Details Date Type Department Care Team (Late st Contact Info) Description 05/07/2022 Telephone [place] [phone] Héctor Patel MD [facility] [place] [address] Social History Tobacco Use Types Packs/Day Years Used Date Smoking Tobacco: Never Assessed Sex and Gender Information Value Date Recorded Sex Assigned at Not on file Gender Identity Not on file Sexual Orientation Not on file documented as of this encounter Miscellaneous Notes * Telephone Encounter - Héctor Patel MD - 05/07/2022 1:45 PM EDT Provider Taryn Dowell of [facility] calls on 7 early AM in [...]
--- OUTSIDE RECORDS SUMMARY | 2024-05-26 02:02 | XMS_ITS | Clinical Summary ---
Author Organization [facility] [place] [address] Care Team Providers Care Bandage Winding Machine Operator Name Role Phone Gregorio Pappas MD Primary Care Provider [phone] Allergies No known active allergies Medications Medication [...] - Influenza standard series) 06/14/2024 Care Teams Bandage Winding Machine Operator Relationship Specialty Start Date End Date Gregorio Pappas MD [address] [place] [id number] PCP - General Family Medicine 07/25/22
--- OUTSIDE RECORDS SUMMARY | 2024-05-26 02:02 | XMS_ITS ---
Author Organization [facility] cine Address [address] [place], [place] [address] Care Team Providers Care Concrete Finishing Machine Operator Name Role Phone SARAI PARSONS Primary Care Provider [phone] REASON FOR VISIT rx Medications Medication SIG (Take, Route, Fr equency, Duration) Notes Start Date End Date Status Premarin 1.25 MG 1 tablet Orally Once a day for 90 days Active Encounters Encounter Location Date Provider Diagnosis [facility] [address] [place], [place] [id number] 10/08/2023 SARAI PARSONS Hormone replacement therapy Z79.890 Assessments Encounter Date Diagnosis (ICD Code) Assessment Notes Treat ment Notes Treatment Clinical Notes 10/08/2023 Hormone replacement therapy (ICD-10 - Z79.890) Plan Of Treatment Medication Medication Name Sig Start Date Stop Date Notes Premarin 1.25 MG 1 tablet Orally Once a day for 90 days Progress Notes * Anali SMITHDOB: [birth year] (43 yo F)Acc No.[id number]:10/08/2023 Patient:?Sheba SMITHica :1980???Age:43 Y???Sex:Female Address:[address] [address] * Refills? Refill Premarin Tablet, 1.25 MG, Orally, 90 Tablet, 1 tablet, Once a day, 90 days, Refills=1 * true * Date:? Generated for Printi ng/Fanikog/eTransmitting on:?05/26/2024 02:02 AM EDT
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
--- OUTSIDE RECORDS SUMMARY | 2024-05-26 02:02 | XMS_ITS | Encounter Summary ---
Author Organization [facility] Address [facility] [place] [address] Care Team Providers Care Quilt Stuffer Name Role Phone Unavailable Primary Care Provider Unavailabl e Reason for Visit * Reason Comments Advice Only Facial fractures Encounter Details Date Type Department Care Team (Late st Contact Info) Description 05/09/2022 4:00 PM EDT Office [place] [address] [facility] [place] [place] [address] Facial injury, initial encounter Social History Tobacco [...] tobacco or vape products. 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 PMHx: No past medical history on [...]
--- OUTSIDE RECORDS SUMMARY | 2024-05-26 02:02 | XMS_ITS ---
Author Organization [facility] cine Address [address] [place] [id number] Care Team Providers Care Manager Oracle Name Role Phone GREGORIO PAPPAS Primary Care [...] 12/03/2023 Encounters Encounter Location Date Provider Diagnosis [facility] [address] [place] [id number] 12/03/2023 GREGORIO PAPPAS Annual physical exam Z00.00 [...] * Anali SMITHDOB: [birth year] (43 yo F)Acc No.[id number]:12/03/2023 Progress Notes Patient:?Anali SMITH Provider:?Gregorio Pappas MD :1980???Age:43 Y???Sex:Female D ate:12/03/2023 Address:[address] [place] [address], [facility], [id number] Subjective: * Chief Complaints: * ???PE WITH [...] * ROS:?see quest. * Medical History:? * Curriculum Specialist History:?Mammograms?24.?Hysterectomy?hysterectomy-had nl pap post surg.? * OB [...] History:?Tobacco: Former smoker. ???, has partner; works [employer].To. 2 daughters. * Medications:?TakingCefpodoxi me Proxetil 200 [...] Codes:? * Billing Information: * Visit Code:? 29372 Preventive Care Est Pt. Age 40-64. * Procedure Codes:? * Sign off status: Completed true * Provider:?Gregorio Pappas MD Date:? 024 Generated for Thomas gonsalves/Isma/eTshravansmitting on:?05/26/2024 02:01 AM EDT History and Physical [...] Poor appetite or overeating: More than h intermediate the days Feeling bad about yourself o [...] General Examination GENERAL APPEARANCE: in no ac chicken ranch distress, well developed, well nourished HEAD: normocephalic, [...]
--- OUTSIDE RECORDS SUMMARY | 2024-05-26 02:02 | XMS_ITS | Patient Health Record ---
Author Organization [facility] Address [address] [place], [place] [id number] Care Team Providers Care Maintenance Mechanic Technician Name Role Phone SARAI PARSONS Primary Care [...] Vaccine Route Administration Date Status Comme nts Tdap Unknown 11/06/2016 Administered Covid-19 Moderna Dose 2 Unknown 11/28/2020 Administered Covid-19 Moderna Dose 1 Unknown 10/31/2020 Administered Covid-19 Moderna Bivalent 12y+ Unknown 08/15/2022 Admin istered Covid-19 Moderna Unknown 09/15/2021 Administered Problems Problem Type SNOMED Code ICD Code Onset Dates Problem Status W/U Status Risk Notes Problem 717737294 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 Problem 110828916 Adjustment react ion with anxiety and depression (F43.23) Active confirmed Vital Signs Heart Rate 80 /min 12/03/2023 Blood pressure diastolic 76 mmHg 05/20/2024 Weight-kg 80.29 kg 05/20/2024 Height 65.75 in 05/20/2024 Blood pressure systolic 126 mmHg 05/20/2024 Weight 177 lbs 05/20/2024 BMI 28.78 05/20/2024 Encounters Encounter Location Date Provider Diagnosis [facility] [address] [place], [place] [id number] 12/03/2023 SARAI PARSONS Annual physical exam Z00.00 ; Hormone replacement therapy Z79.890 ; Recurrent UTI N39.0 and Breast cancer screening Z12.39 [facility] [address] [place], [place] [id number] 05/20/2024 SARAI PARSONS Adjustment reaction with anxiety and depression F43.23 ; Chronic nasal congestion R09.81 and Sacroiliac dysfunction M53.3 [facility] [address] [place], [place] [id number] 07/15/2023 SARAI PARSONS Recurrent UTI N39.0 [facility] [address] [place], [place] [id number] 10/08/2023 SARAI PARSONS Hormone replacement therapy Z79.890 [...] [employer] [address] [place] [address] [id number] Anali Linton Self - patient is the insured Medical (General) History Medical History History ICD Code endometriosis Family history colon cancer father at 55 Surgical History Surgery Date(Month/Year) hysterectomy laproscopic
== END 2024-05-26 02:20 ==
LOC: DI 02:00
PROVIDERS: PCP Family Medicine; Visit Provider Family Medicine
DX: Z12.31 Encounter for screening mammogram for malignant neoplasm of breast (principal)
CPT/HCPCS: 77063; 77067

== ENCOUNTER 2024-05-28 02:32 | Outpatient (CLI) | payer OTHER, SELFPAY ==
--- NOTE | 2024-05-28 | DI.MAMMO_ITS ---
Exam(s) MG MAMMO SCREEN CALL BACK UNI US BREAST LT LIMITED EXAM: MG MAMMO SCREEN CALL BACK UNI CLINICAL HISTORY: 4 mm nodule in upper outer quadrant of lt breast with slightly irregular. TECHNIQUE: Craniocaudal and mediolateral oblique Full Field Digital Mammography views of the left br east with Computer Aided Diagnosis followed by Tomosynthesis and left breast ultrasound. COMPARISON: Comparison is made with prior examinations. FINDINGS: Mammography/Tomosynthesis: Masses/Architectural Distortion: There is again seen a small well-circumscribed nodule in the posteri or outer left breast which may represent an intraparenchymal lymph node. No suspicious masses are se en. No areas of architectural distortion are seen. Microcalcifictions: No suspicious pleomorphic-type are seen. Skin Thickening/Nipple Retraction: None. Limited left breast US: Echotexture: Normal appearance of the glandular tissue. Shadowing: No suspicious foci. Cyst: None. Solid lesions: None seen. Ductal dilation: None. IMPRESSION: 1. No evidence of malignancy is noted. 2. Unless there is more urgent need, follow-up screening mammography is recommended, as per [place] [employer] guidelines. BI-RADS Category 2 - Benign Findings Breast Density - Category B - Scattered areas of fibroglandular density Breast density category C or D implies that the patient has dense breast tissue. Dense breast tissue is very common and is not abnormal but dense breast tissue can make it harder to find cancer on a ma mmogram. Also, dense breast tissue may increase their breast cancer risk. This information about the result of the mammogram report was provided to the patient to raise their awareness. Use this report when you speak with the patient about their risks for breast cancer, which includes their family hist ory. At that time, you may recommend for more screening tests (Ultrasound or MRI) as they might be us eful based on their risk. A negative radiographic report should not delay biopsy if a dominant or clinically suspicious mass is present. Up to ten percent of cancers are not identified on mammography. A negative report may reinforce clinical impression. Adenosis and dense breasts may obscure an underlying neoplasm. False positive reports average 6 to 10%. Patient will receive a letter notifying them of these results.
== END 2024-05-28 02:52 ==
LOC: DI 02:32
PROVIDERS: PCP Family Medicine; Visit Provider Family Medicine
DX: Z12.31 Encounter for screening mammogram for malignant neoplasm of breast (principal); R92.8 Other abnormal and inconclusive findings on diagnostic imaging of breast
CPT/HCPCS: 76642; 77063; 77067

== ENCOUNTER 2025-01-26 09:42 | Outpatient (CLI) | payer OTHER, SELFPAY ==
[2025-01-26 07:46] LABS: Abs Immature Grans 0.02 10^3/uL (0.0-0.06); Absolute Basophil Count 0.12 10^3/uL (0.0-0.2); Absolute Eosinophil Count 0.81 10^3/uL (0.0-0.7); Absolute Lymphocyte Count 2.68 10^3/uL (1.2-3.4); Absolute Monocyte Count 0.41 10^3/uL (0.1-0.8); Basophils % 1.5 %; Eosinophils % 9.8 %; HCT 39.9 % (36.0-46.0); HGB 12.5 g/dL (11.2-15.7); Immature Grans % 0.2 %; Lymphocytes % 32.5 %; MCHC 31.3 % (32.0-36.0); MCV 89 fL (80-95); Platelet Count 315 10^3/uL (130-400); RBC 4.47 10^6/uL (3.93-5.22); RDW 12.9 % (11.7-14.6); RDW-SD 42.3 fL; WBC 8.24 10^3/uL (4.4-10.8)
[2025-01-26 08:34] LABS: ALT 29 U/L (14-59); AST 18 U/L (15-37); Albumin 3.2 g/dL (3.4-5.0); Alkaline Phosphatase 94 U/L (46-116); Anion Gap 4.3 mmol/L (3-11); BUN 15 mg/dL (7-18); Bilirubin, Total 0.2 mg/dL (0.2-1.0); CO2 30.7 mmol/L (21.0-32.0); CREATININE 0.8 mg/dL (0.55-1.02); Calcium 9.2 mg/dL (8.5-10.1); Calculated LDL 85 mg/dL (<100); Chloride 108 mmol/L (98-107); Cholesterol 196 mg/dL (<200); Glucose 93 mg/dL (74-106); HDL Cholesterol 70 mg/dL (>or=50); Potassium 4.5 mmol/L (3.5-5.1); Sodium 143 mmol/L (136-145); TSH 1.42 uIU/mL (0.36-3.74); Total Protein 7.2 g/dL (6.4-8.2); Triglyceride 209 mg/dL (<150); Vitamin D 25 Total 35 ng/mL (30-100)
== END 2025-01-26 09:43 | disposition home or self-care (01) ==
LOC: LBO 09:42
PROVIDERS: PCP Family Medicine; Visit Provider Registered Nurse
DX: E55.9 Vitamin D deficiency, unspecified (principal); Z83.42 Family history of familial hypercholesterolemia; Z00.00 Encounter for general adult medical examination without abnormal findings
CPT/HCPCS: 36415; 80053; 80061; 82306; 84443; 85025